=== PATIENT | female | born 1995 | race Caucasian/White ===

== ENCOUNTER → 2018-08-11 17:08 | Outpatient (CLI) | payer OTHER, SELFPAY ==
[2018-08-11 17:52] LABS: Add Manual Diff / Slide Review NO; Basophils Absolute Auto 100 /uL (0-100); Basophils Percent Auto 0.5 % (0-2); Eosinophils Absolute Auto 100 /uL (0-450); Eosinophils Percent Auto 0.7 % (2-4); Hemoglobin 12.7 g/dL (12.0-16.0); Lymphocytes Absolute Auto 2500 /uL (1100-4500); Lymphocytes Percent Auto 21.9 % (25-40); Mean Corpuscular HGB Conc 34.4 % (30-36); Mean Corpuscular Hemoglobin 30.1 PG (26-34); Mean Corpuscular Volume 87.6 fL (80-100); Monocytes Absolute Auto 600 /uL (0-900); Monocytes Percent Auto 5.5 % (3-14); Neutrophils Absolute Auto 8200 /uL (1500-7000); Neutrophils Percent Auto 71.4 % (50-75); Platelet Count 313 X10^3/uL (150-400); Red Blood Cell Count 4.23 X10^6/uL (4.0-5.2); Red Cell Distribution Width 13.3 % (11.6-14.8); White Blood Cell Count 11.5 X10^3/uL (4.5-11.0)
[2018-08-11 17:54] LABS: Appearance Urine UA CLEAR; Bilirubin Urine UA NEGATIVE (NEGATIVE); Color Urine UA YELLOW; Glucose Urine UA NEGATIVE (Negative); Ketones Urine UA NEGATIVE (NEGATIVE); Leukocyte Esterase Urine UA NEGATIVE (NEGATIVE); Nitrite Urine UA NEGATIVE (Negative); Occult Blood Urine UA NEGATIVE (Negative); Protein Urine UA NEGATIVE (Negative); Specific Gravity Urine UA >=1.030 (1.000-1.035); Urobilinogen Urine UA 0.2 E.U./dL (0.2); pH Urine UA 5.5 (4.5-8.0)
[2018-08-11 18:46] LABS: Free T3, Triiodothyronine Free 3.28 pg/mL (2.77-5.27)
[2018-08-11 18:48] LABS: Free T4, Direct Thyroxine 1.32 ng/dL (0.78-2.19)
[2018-08-11 19:02] LABS: Thyroid Stimulating Hormone 2.07 uIU/mL (0.47-4.68)
[2018-08-11 19:06] LABS: Hepatitis B Surface Antigen NEGATIVE s/c (NEGATIVE)
[2018-08-11 19:19] LABS: HIV 1 and 2 Antibody NEGATIVE (NEGATIVE); Hep C Virus Ab w/Reflex Quant NEGATIVE s/c (NEGATIVE)
[2018-08-13 18:16] LABS: RPR Screen Nonreactive (Nonreactive)
== END ==
PROVIDERS: Family Medicine; Visit Provider Internal Medicine
DX: E03.9 Hypothyroidism, unspecified (principal); Z34.01 Encounter for supervision of normal first pregnancy, first trimester
CPT/HCPCS: 36415; 80055; 81003; 84439; 84443; 84481; 86703; 86787; 86803; 86850; 86900; 86901; 87086

== ENCOUNTER → 2018-08-17 15:54 | Outpatient (CLI) | payer OTHER, SELFPAY ==
--- NOTE | 2018-08-17 15:56 | DI.US.S_ITS ---
PROCEDURE: US OB <= 14 WEEKS FETUS INDICATIONS: DATING / INITIAL ULTRASOUND OUTSIDE/PRIOR DATING DATA: Last menstrual period (LMP): 06/23/18. LMP-based estimated date of delivery (GUILLERMO): 03/30/19. First dating scan (date and location): This study, 08/17/18. Estimated date of delivery (GUILLERMO) from first dating scan: 03/28/19. TECHNIQUE: Real-time scanning was performed of the fetus and maternal pelvic organs, with image documentation. Endovaginal scanning was also performed to better visualize the fetus and maternal ovaries. COMPARISON: None. FINDINGS: Embryo: [place]-rump length of 3.1 cm correlates with a gestational age estimate of 8 weeks 2 days, plus or -5 days. The heart rate is 165 beats per minute. Measurement variability in dating: +/- 4 weeks by LMP, +/- 7 days by mean sac diameter (use before 6 weeks gestation if crown-rump length not able to be measured), +/- 5 days by crown-rump length (up to 8 weeks 6 days gestation), +/- 7 days by crown-rump length (up to 13 weeks 6 days gestation). Maternal organs: Ovaries appear normal considering gestational status except for presence of a 4 x 4 by 6 mm hyperechoic focus within a cystic area of the right ovary,. Limited images through the kidneys demonstrate no hydronephrosis. IMPRESSION: Single living intrauterine gestation, with the delivery date projected be centered on 03/28/19. Followup anatomic survey 21 weeks gestation is recommended. Within the right ovary is a cystic structure containing a small echogenic nodular structure which shows no evidence of cardiac activity (an appearance is present at could conceivably represent heterotopic ectopic ). 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 Recommend followup assessment of this area in 2 weeks unless clinically indicated sooner to determine military exchange wireless manager time or establish stability. This could represent a small dermoid tumor or coincidental finding of a nonviable ectopic . Follow up is definitely recommended to further assess the structure. Dictated by: Juan Esquivel M.D. on 08/18/2018 at 10:13 Approved by: Juan Esquivel M.D. on 08/18/2018 at 10:19
== END ==
PROVIDERS: Visit Provider Family Medicine
DX: Z34.01 Encounter for supervision of normal first pregnancy, first trimester (principal); Z3A.08 8 weeks gestation of pregnancy
CPT/HCPCS: 76801; 76817

== ENCOUNTER → 2018-08-31 15:29 | Outpatient (CLI) | payer OTHER, SELFPAY ==
--- NOTE | 2018-08-31 | DI.US.S_ITS ---
PROCEDURE: US OB <= 14 WEEKS FETUS INDICATIONS: MASS OF RIGHT OVARY OUTSIDE/PRIOR DATING DATA: Last menstrual period (LMP): 06/23/18. LMP-based estimated date of delivery (GUILLERMO): 03/30/19. First dating scan (date and location): 08/17/18. Estimated date of delivery (GUILLERMO) from first dating scan: 03/28/19. TECHNIQUE: Real-time scanning was performed of the fetus and maternal pelvic organs, with image documentation. Endovaginal scanning was also performed to better visualize the fetus and maternal ovaries. COMPARISON: , , OB <= 14 WEEKS FETUS, 08/17/2018, 16:10. FINDINGS: Embryo: [place]-rump length of 3.1 cm correlates with a gestational age of 10 weeks 0 days, and there is a heart rate of 160 beats per minute. Measurement variability in dating: +/- 4 weeks by LMP, +/- 7 days by mean sac diameter (use before 6 weeks gestation if crown-rump length not able to be measured), +/- 5 days by crown-rump length (up to 8 weeks 6 days gestation), +/- 7 days by crown-rump length (up to 13 weeks 6 days gestation). Maternal organs: The left ovary is considering gestational status. Limited images through the kidneys demonstrate no hydronephrosis. The right ovary contains a cyst with an echogenic nodular structure containing internal blood flow persisting on the right with the overall structure measuring 1.2 x 0.8 x 1.2 cm. A nodular component shows internal cystic change, and measures 1.2 x 0.8 x 1.2 cm IMPRESSION: Single living intrauterine gestation, normal cardiac activity observed in that area. Again noted at the right ovary is a cystic structure with an internal solid nodular component, with a nodular component showing a small internal cystic change and no evidence of cardiac activity. This structure remains indeterminate in etiology and followup pelvic ultrasound with attention to that structure in 2 weeks is recommended. It is possible that this relates to a synchronous ectopic that is involuting. Dictated by: Juan Esquivel M.D. on 08/31/2018 at 17:04 Approved by: Juan Esquivel M.D. on 08/31/2018 at 17:09
== END ==
PROVIDERS: PCP Family Medicine; Visit Provider Family Medicine
DX: O34.81 Maternal care for other abnormalities of pelvic organs, first trimester (principal); N83.201 Unspecified ovarian cyst, right side; Z3A.10 10 weeks gestation of pregnancy
CPT/HCPCS: 76801; 76817

== ENCOUNTER → 2018-09-10 16:46 | Outpatient (CLI) | payer OTHER, SELFPAY ==
[2018-09-10 18:37] LABS: TSH w/ Reflex to FT4 1.64 uIU/mL (0.47-4.68)
== END ==
PROVIDERS: PCP Family Medicine; Visit Provider Family Medicine
DX: E03.9 Hypothyroidism, unspecified (principal); O99.280 Endocrine, nutritional and metabolic diseases complicating pregnancy, unspecified trimester
CPT/HCPCS: 36415; 84443

== ENCOUNTER → 2018-10-12 15:07 | Outpatient (CLI) | payer OTHER, SELFPAY ==
--- NOTE | 2018-10-12 15:09 | DI.US.S_ITS ---
PROCEDURE: US OB >= 14 WEEKS FETUS INDICATIONS: OUTSIDE/PRIOR DATING DATA: Last menstrual period (LMP): 06/23/18. LMP-based estimated date of delivery (GUILLERMO): 03/30/19. First dating scan (date and location): 08/17/18. Estimated date of delivery (GUILLERMO) from first dating scan: 03/28/19. TECHNIQUE: Real-time scanning was performed of the fetus, with image documentation and biometric measurements. COMPARISON: [facility], OB <= 14 WEEKS FETUS, 08/31/2018, 15:40. [facility], OB <= 14 WEEKS FETUS, 08/17/2018, 16:10. FINDINGS: General: A single living intrauterine gestation is present. Presentation: Transverse maternal right. Placenta: Placental position is posterior, without previa. Amniotic fluid index: Grossly within normal limits heart rate: 147 beats per minute. Maternal cervical canal: 4.0 cm long. Normal lower limit is 2.5 cm. biometrics: Estimated gestational age from initial scan: 16 weeks one day Questionable corpus luteal cyst is noted in the left kidney measuring 16 mm. Previously identified echogenic structure within the right ovary has decreased in size currently measuring 8 x 6 x 7 mm compared to 12 x 8 x 12 mm on prior exam. IMPRESSION: 1. Single intrauterine with ultrasound gestational age of 16 weeks one day. 2. Interval decrease in size of previous right ovarian echogenic focus compared to prior exam. Dictated by: Janel Sneed M.D. on 10/13/2018 at 10:53 Approved by: Janel Sneed M.D. on 10/13/2018 at 11:53
== END ==
PROVIDERS: PCP Family Medicine; Visit Provider Family Medicine
DX: O99.282 Endocrine, nutritional and metabolic diseases complicating pregnancy, second trimester (principal); E03.9 Hypothyroidism, unspecified; Z3A.16 16 weeks gestation of pregnancy
CPT/HCPCS: 76811

== ENCOUNTER → 2018-11-10 13:13 | Outpatient (CLI) | payer OTHER, SELFPAY ==
[2018-11-10 15:10] LABS: TSH w/ Reflex to FT4 1.78 uIU/mL (0.47-4.68)
[2018-11-17 11:58] LABS: AFP, Serum 58.3 ng/mL; Brief History Not Given; Calc Gestational Age 20; Est Date Determined by Ultrasound; Maternal Weight 165 lbs; Mother Ethnic Origin White; Number of Fetuses 1; Prev Pregnancies Down Syndrome No
== END ==
PROVIDERS: PCP Family Medicine; Visit Provider Family Medicine
DX: E03.9 Hypothyroidism, unspecified (principal); O99.280 Endocrine, nutritional and metabolic diseases complicating pregnancy, unspecified trimester; Z3A.17 17 weeks gestation of pregnancy
CPT/HCPCS: 36415; 82105; 84443

== ENCOUNTER → 2018-11-12 10:05 | Outpatient (CLI) | payer OTHER, SELFPAY ==
[2018-11-12 10:39] LABS: Free T4, Direct Thyroxine 1.09 ng/dL (0.78-2.19)
== END ==
PROVIDERS: PCP Family Medicine; Visit Provider Family Medicine
DX: E03.9 Hypothyroidism, unspecified (principal); O99.280 Endocrine, nutritional and metabolic diseases complicating pregnancy, unspecified trimester
CPT/HCPCS: 84439

== ENCOUNTER → 2018-12-21 13:03 | Outpatient (CLI) | payer OTHER, SELFPAY ==
[2018-12-21 15:02] LABS: Add Manual Diff / Slide Review NO; Basophils Absolute Auto 0 /uL (0-100); Basophils Percent Auto 0.3 % (0-2); Eosinophils Absolute Auto 100 /uL (0-450); Eosinophils Percent Auto 0.7 % (2-4); Hematocrit 33.9 % (36-46); Hemoglobin 11.7 g/dL (12.0-16.0); Lymphocytes Absolute Auto 2200 /uL (1100-4500); Lymphocytes Percent Auto 17.8 % (25-40); Mean Corpuscular HGB Conc 34.4 % (30-36); Mean Corpuscular Hemoglobin 30.4 PG (26-34); Mean Corpuscular Volume 88.3 fL (80-100); Monocytes Absolute Auto 600 /uL (0-900); Monocytes Percent Auto 4.9 % (3-14); Neutrophils Absolute Auto 9500 /uL (1500-7000); Neutrophils Percent Auto 76.3 % (50-75); Platelet Count 267 X10^3/uL (150-400); Red Blood Cell Count 3.84 X10^6/uL (4.0-5.2); Red Cell Distribution Width 13.5 % (11.6-14.8); White Blood Cell Count 12.4 X10^3/uL (4.5-11.0)
[2018-12-21 15:23] LABS: Alanine Aminotransferase 14 IU/L (9-52); Albumin 3.6 g/dL (3.5-5.0); Albumin Globulin Ratio 1.3 (1.0-2.8); Alkaline Phosphatase 52 U/L (38-126); Aspartate Aminotransferase 22 IU/L (14-36); BUN Creatinine Ratio 17.5 (6-22); Bilirubin Total 0.3 mg/dL (0.2-1.3); Blood Urea Nitrogen 7 mg/dL (7-17); Carbon Dioxide 27 mmol/L (22-32); Chloride 103 mmol/L (98-107); Estimated Glomerular Filt Rate > 60.0 mL/min (>60); GTT (PREG) 1 Hour PP 50gm Dose 88 mg/dL (76-139); Globulin 2.7 g/dL (1.7-4.1); Glucose 88 mg/dL (70-100); HEMOLYSIS < 15 (0-50); Potassium 3.7 mmol/L (3.4-5.1); Sodium 137 mmol/L (137-145); Total Protein 6.3 g/dL (6.3-8.2)
[2018-12-21 19:25] LABS: Creatinine Urine Random 80.7 mg/dL
[2018-12-21 19:29] LABS: Microalbumi Creatinin Ratio Ur 7.4 ug/mg CR (<30); Microalbumin Urine Random < 0.6 mg/dL (0-1.6)
[2018-12-21 19:40] LABS: Free T4, Direct Thyroxine 1.01 ng/dL (0.78-2.19)
[2018-12-21 19:54] LABS: Thyroid Stimulating Hormone 1.11 uIU/mL (0.47-4.68)
== END ==
PROVIDERS: PCP Family Medicine; Visit Provider Family Medicine
DX: E03.9 Hypothyroidism, unspecified (principal); O99.280 Endocrine, nutritional and metabolic diseases complicating pregnancy, unspecified trimester; Z3A.26 26 weeks gestation of pregnancy
CPT/HCPCS: 36415; 80053; 82043; 82570; 82950; 84439; 84443; 85025

== ENCOUNTER → 2019-01-18 12:27 | Outpatient (CLI) | payer OTHER, SELFPAY ==
[2019-01-18 14:05] LABS: Free T4, Direct Thyroxine 0.85 ng/dL (0.78-2.19)
== END ==
PROVIDERS: PCP Family Medicine; Visit Provider Family Medicine
DX: E03.9 Hypothyroidism, unspecified (principal); O99.280 Endocrine, nutritional and metabolic diseases complicating pregnancy, unspecified trimester
CPT/HCPCS: 36415; 84439; 84443

== ENCOUNTER → 2019-01-19 16:03 | Outpatient (CLI) | payer OTHER, SELFPAY ==
[2019-01-19 17:21] LABS: Hematocrit 32.8 % (36-46); Hemoglobin 11.2 g/dL (12.0-16.0)
== END ==
PROVIDERS: PCP Family Medicine; Visit Provider Family Medicine
DX: D64.9 Anemia, unspecified (principal)
CPT/HCPCS: 36415; 85014; 85018

== ENCOUNTER → 2019-01-21 15:00 | Outpatient (CLI) | payer OTHER, SELFPAY ==
--- NOTE | 2019-01-21 15:01 | DI.US.S_ITS ---
PROCEDURE: US ABDOMEN COMPLETE INDICATIONS: Upper abdominal pain TECHNIQUE: Real-time scanning was performed of the abdominal and retroperitoneal organs, with image documentation. COMPARISON: None. FINDINGS: Liver: Liver is normal in size and homogeneous in echotexture. Gallbladder: No gallstones. No gallbladder wall thickening, pericholecystic fluid or sonographic Muir's sign. Biliary ducts: Intrahepatic bile ducts are non-dilated. Extrahepatic bile duct caliber measures 4.6 mm. Normal is 6-7 mm or less in diameter, or 10 mm or less post-cholecystectomy. Pancreas: Visualized portions of the pancreas are sonographically normal. Spleen: Spleen is normal in size and homogeneous in echotexture. Kidneys: Kidneys are normal in size and echotexture. Right kidney measures 13.8 cm long; left kidney measures 14.0 cm long. There is trace pelviectasis versus extrarenal pelvis in right kidney. No solid masses. Aorta: Visualized aorta is normal in caliber at less than 3 cm. Iliacs: Proximal common iliac arteries are normal in caliber at less than 2.5 cm. IVC: Intrahepatic inferior vena cava is patent. Miscellaneous: No free abdominal fluid. There is a single living IUP with heart rate 128 PM. IMPRESSION: 1. No ultrasound findings to explain right upper quadrant pain. 2. Trace pelviectasis versus extrarenal pelvis in the kidney. 3. A single living IUP with heart rate 128 bpm. Dictated by: Radha Mosley M.D. on 01/21/2019 at 16:24 Approved by: Radha Mosley M.D. on 01/21/2019 at 16:34
== END ==
PROVIDERS: PCP Family Medicine; Visit Provider Registered Nurse
DX: R10.10 Upper abdominal pain, unspecified (principal)
CPT/HCPCS: 76700

== ENCOUNTER → 2019-02-02 12:49 | Outpatient (CLI) | payer OTHER, SELFPAY ==
[2019-02-02 12:53] LABS: Bacteria Urine None Seen; RBC Urine None Seen (0-5/HPF); WBC Urine None Seen (0-5/HPF)
[2019-02-02 13:10] LABS: Appearance Urine UA CLEAR; Bilirubin Urine UA NEGATIVE (NEGATIVE); Color Urine UA YELLOW; Glucose Urine UA NEGATIVE (Negative); Ketones Urine UA NEGATIVE (NEGATIVE); Leukocyte Esterase Urine UA NEGATIVE (NEGATIVE); Nitrite Urine UA NEGATIVE (Negative); Occult Blood Urine UA NEGATIVE (Negative); Protein Urine UA NEGATIVE (Negative); Specific Gravity Urine UA <=1.005 (1.000-1.035); Urobilinogen Urine UA 0.2 E.U./dL (0.2); pH Urine UA 6.5 (4.5-8.0)
[2019-02-02 13:16] LABS: Culture Indicated Urine Cult Not Indicated; Urine Comments Microscopic Normal
== END ==
PROVIDERS: PCP Family Medicine; Visit Provider Family Medicine
DX: R30.0 Dysuria (principal)
CPT/HCPCS: 81001

== ENCOUNTER 2019-02-03 09:49 | Outpatient (CLI) | payer OTHER, SELFPAY | END 2019-02-03 11:14 | disposition home or self-care (01) | LOC: LABOR 09:56 → OB 02-04 12:04 | PROVIDERS: PCP Family Medicine; Visit Provider Obstetrics & Gynecology | DX: O47.03 False labor before 37 completed weeks of gestation, third trimester (principal); Z3A.32 32 weeks gestation of pregnancy | CPT/HCPCS: 59025; G0378; G0379 ==

== ENCOUNTER → 2019-02-15 12:42 | Outpatient (CLI) | payer OTHER, SELFPAY ==
[2019-02-15 14:37] LABS: Free T4, Direct Thyroxine 0.85 ng/dL (0.78-2.19)
[2019-02-15 14:51] LABS: Thyroid Stimulating Hormone 0.95 uIU/mL (0.47-4.68)
== END ==
PROVIDERS: PCP Family Medicine; Visit Provider Family Medicine
DX: O99.280 Endocrine, nutritional and metabolic diseases complicating pregnancy, unspecified trimester (principal); E03.9 Hypothyroidism, unspecified
CPT/HCPCS: 36415; 84439; 84443

== ENCOUNTER → 2019-03-02 10:25 | Outpatient (CLI) | payer OTHER, SELFPAY ==
[2019-03-03 09:24] LABS: Strep Grp B PCR POS for Grp B Strep
== END ==
PROVIDERS: PCP Family Medicine; Visit Provider Family Medicine
DX: Z3A.36 36 weeks gestation of pregnancy (principal)
CPT/HCPCS: 87186; 87653

== ENCOUNTER 2019-04-02 06:46 | Observation (INO) | payer OTHER, SELFPAY ==
--- NOTE | 2019-04-02 07:12 | PM.OBHP.1 ---
OB HPI Date/Time Date of admission: 04/02/19 Date Patient Seen: 04/02/19 Time Patient Seen: 07:30 History of Present Condition Chief complaint: maternity : 3 Para: 0 Estimated Date of Delivery: 03/29/19 Estimated Gestational Age (weeks): 40w4d Narrative: Smiley Powell is a 24 year old female with h/o asymptomatic chiari 1 malformation and well-controlled hypothyroidism. She has had significant thoracic back pain for the last month+ unrelieved with rest, stopping work, massage and physical therapy. Indications Indication for induction OB: maternal discomfort History of Present care: good care, initiated at week # (10), number of visits (14) and pounds weight gain (26) Dating criteria: LMP confirmed by 1st trimester US Ultrasounds: abnormal US findings Obstetrical complications: none Medical complications: other (Hypothyroidism) Preadmission Labs Blood type: B (+) positive -: Antibody screen: negative, GBS status: positive, HBsAG: negative, HIV: negative and RPR/VDLR: negative -: Chlamydia screen: not detected -: Rubella: immune and Varicella: immune HCT: 37 HCAB: negative PAP: Normal Quad screen: Normal Cell-free DNA: Normal male 1 hr GTT: 88 Prior (ies) History: 2014 spontaneous of blighted ovum 9 weeks 06/18/17 spontaneous at 8 weeks requiring D&C, cervical laceration repaired Evaluation Evaluation Baseline heart rate: 120 Variability: Moderate (11-25) monitor accelerations: Present monitor decelerations: Absent Cervical dilation (cm): 2 Cervical effacement (%): 50 station: -1 PENDING SALE TO [facility] Medical History Abnormal Pap smear of cervix (Acute) Anxiety and depression (Chronic) Chiari malformation (Acute) Sanchez's thyroiditis (Chronic) Migraines (Chronic) Seizures (Resolved) Spontaneous (Resolved) Surgical History Dermoid cyst of right ovary (Resolved) H/O wisdom tooth extraction (Resolved) History of D&C (Resolved) Family History Mother Hypothyroidism Social History marital status: number of children: 0 household members: spouse lives independently: Yes education level: college occupational status: employed Smoking Status: Never smoker alcohol intake: current substance use type: does not use Family History Mother Hypothyroidism Social History marital status: number of children: 0 household members: spouse lives independently: Yes education level: college occupational status: employed Smoking Status: Never smoker alcohol intake: current substance use type: does not use Meds Home Medications and Allergies Home Medications Medication Instructions Recorded Confirmed Type prenat.vits,chas,iel-bgjo-tldff 1 tab PO DAILY 08/27/18 03/15/19 History famotidine 20 mg tablet 20 mg PO DAILY PRN 01/21/19 03/15/19 History Double Electric Breast Pump and #1 each 01/28/19 03/15/19 Rx supplies levothyroxine 75 mcg tablet 75 mcg PO DAILY #30 tab 02/08/19 03/15/19 Rx doxylamine succinate 25 mg tablet 12.5 mg PO BEDTIME PRN tab 03/15/19 03/15/19 History Allergies Allergy/AdvReac Type Severity Reaction Status Date / Time Penicillins AdvReac Hives Verified 03/15/19 14:29 Review of Systems Constitutional Constitutional: Denies fatigue, Denies fever(s) and Denies headache(s) ENT Ears, Nose, Mouth, and Throat: No headache(s) Respiratory Respiratory: Denies cough Gastrointestinal Gastrointestinal: Denies abdominal pain Musculoskeletal Musculoskeletal: Reports back pain (mid thoracic) Neurologic Neurologic: Denies headache(s) Endocrine Endocrine: Denies fatigue Exam Const General: healthy appearing and comfortable HENMT Head: normal to inspection Ears: hearing grossly normal bilaterally Nose: external nose normal Face and sinus: normal facial exam Mouth: oral mucosae normal Eyes General: appearance normal, both eyes and all related structures Neck Neck: normal visual inspection Resp Effort & Inspection: normal respiratory effort Auscultation: clear to auscultation bilaterally Cardio Rate: regular rate Rhythm: regular rhythm Heart Sounds: no murmurs GI Other: Gravid External Female Exam: external appearance normal Manual OB Exam: dilated 2, effaced 50% and station -1 Presentation: vertex Estimated Weight (lbs): 7 Back/Spine/Pelvis Back: normal to inspection Skin General: no rashes or lesions noted Extrem General: normal to inspection and no pedal edema Objective Labs Result Diagrams: 04/02/19 08:05 Assessment and Plan Assessment and Plan Assessment and Plan narrative: Patient is a 24 year old at 40 weeks and 4 days gestation here for induction for maternal discomfort. Chan score of 8. History is significant for asymptomatic chiari 1 malformation and well-controlled hypothyroidism. She was seen by MFM during the due to the chiari 1 malformation. No contraindications to pushing with vaginal delivery. Case was discussed with anesthesia ahead of time regarding epidural anesthesia and patient was determined ok to deliver at [facility]. Due to her chiari 1 malformation, there is potential increased risk with epidural or spinal anesthesia though no contraindication to either. Plan - Pitocin per protocol - Anesthesia aware of patient - GBS prophylaxis, will give cefazolin due to penicillin allergy
[2019-04-02 08:29] LABS: Add Manual Diff / Slide Review NO; Basophils Absolute Auto 100 /uL (0-100); Basophils Percent Auto 0.5 % (0-2); Eosinophils Absolute Auto 100 /uL (0-450); Eosinophils Percent Auto 0.9 % (2-4); Hematocrit 34.1 % (36-46); Hemoglobin 11.2 g/dL (12.0-16.0); Lymphocytes Absolute Auto 2200 /uL (1100-4500); Lymphocytes Percent Auto 20.1 % (25-40); Mean Corpuscular HGB Conc 32.8 % (30-36); Mean Corpuscular Hemoglobin 26.1 PG (26-34); Mean Corpuscular Volume 79.6 fL (80-100); Monocytes Absolute Auto 700 /uL (0-900); Monocytes Percent Auto 6.7 % (3-14); Neutrophils Absolute Auto 7700 /uL (1500-7000); Neutrophils Percent Auto 71.8 % (50-75); Platelet Count 248 X10^3/uL (150-400); Red Blood Cell Count 4.29 X10^6/uL (4.0-5.2); Red Cell Distribution Width 16.3 % (11.6-14.8); White Blood Cell Count 10.7 X10^3/uL (4.5-11.0)
[2019-04-02] MEDS: CEFAZOLIN 2 GM/100 ML FROZ.PIGGY IV (08:36)
[2019-04-02] MEDS: LACTATED RINGERS 1,000 ML 100 ML IV ×2 (08:36→15:42)
[2019-04-02] MEDS: OXYTOCIN PREMIX 30 UNIT/500 ML PLAST..BAG IV (08:52)
[2019-04-02 08:55] VITALS: BP 123/68
[2019-04-02] MEDS: CEFAZOLIN 1 GM/50 ML FROZ.PIGGY IV (16:15)
--- NOTE | 2019-04-02 17:09 | P.PNOB_ITS ---
Date/Time Date Patient Seen: 04/02/19 Time Patient Seen: 17:00 Pain Control Pain control: tolerating well Pelvic Exam Dilation (cm): 3 Effacement (%): 75 station: -1 Contractions Monitor mode: External Pitocin rate (mU/min): 18 Contraction frequency (min): 3 Contraction pattern: Regular Contraction intensity: Moderate Status status: Category l Heart Rate Baseline: 120 Monitor Accelerations: Present Monitor Decelerations: Absent Monitor Variability: Moderate Assessment and Plan Comments: Patient with some cervical mash filter cloth changer the day but not yet in active labor. Pitocin is at 18. Due to staffing issues, will turn off pitocin, monitor patient over the next hour and discharge her home unless she transitions into active labor on her own (unlikely). Will have her return for repeat induction on 04/06/19 unless she returns in spontaneous labor.
== END 2019-04-02 18:30 | disposition home or self-care (01) ==
PROVIDERS: Admitting Provider Family Medicine; PCP Family Medicine; Visit Provider Family Medicine
DX: O48.0 Post-term pregnancy (principal); Z3A.40 40 weeks gestation of pregnancy
CPT/HCPCS: 59050; 85025; 86850; 86900; 86901; 96360; G0378; G0379; J0690; J2590

== ENCOUNTER 2019-04-06 06:44 | Inpatient (IN) | payer OTHER, SELFPAY ==
[2019-04-06 07:41] LABS: Add Manual Diff / Slide Review NO; Basophils Absolute Auto 0 /uL (0-100); Basophils Percent Auto 0.2 % (0-2); Eosinophils Absolute Auto 100 /uL (0-450); Eosinophils Percent Auto 0.7 % (2-4); Hematocrit 34.4 % (36-46); Hemoglobin 11.3 g/dL (12.0-16.0); Lymphocytes Absolute Auto 2100 /uL (1100-4500); Lymphocytes Percent Auto 18.4 % (25-40); Mean Corpuscular HGB Conc 32.9 % (30-36); Mean Corpuscular Hemoglobin 26.1 PG (26-34); Mean Corpuscular Volume 79.2 fL (80-100); Monocytes Absolute Auto 700 /uL (0-900); Monocytes Percent Auto 6.2 % (3-14); Neutrophils Absolute Auto 8600 /uL (1500-7000); Neutrophils Percent Auto 74.5 % (50-75); Platelet Count 245 X10^3/uL (150-400); Red Blood Cell Count 4.35 X10^6/uL (4.0-5.2); Red Cell Distribution Width 15.9 % (11.6-14.8); White Blood Cell Count 11.5 X10^3/uL (4.5-11.0)
[2019-04-06] MEDS: LACTATED RINGERS 1,000 ML 125 ML IV (07:45)
[2019-04-06] MEDS: OXYTOCIN PREMIX 30 UNIT/500 ML PLAST..BAG IV (07:46)
[2019-04-06] MEDS: CEFAZOLIN 2 GM/100 ML FROZ.PIGGY IV (07:49)
[2019-04-06 08:13] VITALS: BP 128/76
--- NOTE | 2019-04-06 08:39 | PM.OBPNLAB ---
Date/Time Date Patient Seen: 04/06/19 Time Patient Seen: 07:30 Pain Control Pain control: tolerating well Comments: Patient presents for repeat attempt at induction. She was here for elective induction on 04/02 19 however discharged home after little change on Pitocin and staffing issues. She returns this morning and reports she has had increased mucus but otherwise no leaking, bleeding or painful contractions. Pelvic Exam Dilation (cm): 2 Effacement (%): 75 station: -1 Amniotic membrane status: Intact Contractions Contractions on admission: irregular Status status: Category l Heart Rate Baseline: 120 Monitor Accelerations: Present Monitor Decelerations: Absent Monitor Variability: Moderate Assessment and Plan Comments: Please refer to H& P from 04/02/19. Patient is a 24-year-old at 41 weeks gestation here for post-dates induction. Elective induction was attempted on 04/02/19 however patient discharged home after little progress and staffing issues going into the night. Will begin Pitocin per protocol Cefazolin for GBS prophylaxis given Pitocin allergy Epidural upon request
[2019-04-06] MEDS: guaiFENesin Solution 100 MG/5 ML UDC 200 MG PO ×3 (09:13→22:02)
--- NOTE | 2019-04-06 12:52 | PM.OBPNLAB ---
Date/Time Date Patient Seen: 04/06/19 Time Patient Seen: 11:45 Pain Control Pain control: tolerating well Pelvic Exam Dilation (cm): 3 Effacement (%): 90 station: -1 Amniotic membrane status: Ruptured (AROM copious clear fluid) Contractions Pitocin rate (mU/min): 12 Contraction frequency (min): 2 Contraction pattern: Regular Contraction intensity: Moderate Status status: Category l Heart Rate Baseline: 120 Monitor Accelerations: Present Monitor Decelerations: Absent Monitor Variability: Moderate Assessment and Plan Assessment: induction ongoing Comments: AROM with clear fluid. Continue pitocin per protocol.
--- NOTE | 2019-04-06 14:26 | PM.AN.REGBLK ---
Regional Block Pre-procedure Attending OB provider: Elaine Brown ASA Class: II Labs: Hct 34.4 % (36-46) L 04/06/19 07:00 Plt Count 245 X10^3/uL (150-400) 04/06/19 07:00 Medications: Current Medications Generic Name Dose Route Start Last Admin Trade Name Freq PRN Reason Stop Dose Admin Calcium Carbonate 1,000 mg 04/06/19 07:06 Tums PO Q2HR PRN Dyspepsia Fentanyl 50 mcg 04/06/19 07:06 Sublimaze IV Q1H PRN Pain, Moderate (4-6) Guaifenesin 200 mg 04/06/19 08:51 04/06/19 13:48 Robitussin Liquid PO 200 mg Q4HR PRN Administration Cough Cefazolin Sodium/Dextrose 1 gm in 50 mls @ 200 mls/hr 04/06/19 15:30 Ancef IV Q8H LEO Lactated Ringer's 1,000 mls @ 125 mls/hr 04/06/19 07:15 04/06/19 07:45 Lactated Ringers IV 125 mls/hr CONT LEO Administration Oxytocin/Lactated Ringer's 30 unit in 500 mls @ 3 mls/hr 04/06/19 07:15 04/06/19 07:46 Oxytocin Premix IV 3 milliunit/min TITRATE LEO 3 mls/hr Administration Protocol 3 MILLIUNIT/MIN FENT 2MCG/ML BUPIV 0.125% EPI 200 mcg in 100 mls @ 5 mls/hr 04/06/19 11:00 Fentanyl/Bupiv/Ns 2mcg/Ml - 0.125% EPIDURAL CONT LEO Ondansetron HCl 4 mg 04/06/19 07:06 Zofran IV Q4HR PRN Nausea And Vomiting Allergies: Allergies Allergy/AdvReac Type Severity Reaction Status Date / Time Penicillins AdvReac Hives Verified 03/15/19 14:29
[2019-04-06] MEDS: CEFAZOLIN 1 GM/50 ML FROZ.PIGGY IV (17:20)
--- NOTE | 2019-04-06 18:41 | PM.OBPRVD ---
Labor & Delivery Delivery date: 04/06/19 Delivery augmentation: rupture of membranes Delivery monitor: external FHT Route of delivery: L&D Laceration Description: Perineal - 2nd Degree (short left side) Delivery repair: vicryl Estimated blood loss (mL): 100 Anesthesia type: Epidural Narrative: Patient is a 24-year-old G 2 P 0 at 41 weeks and 1 day who gave on 04/06/19 at 6:15 p.m. GUILLERMO: 03/29/19 Hospital problems: 41 weeks of Epidural analgesia GBS positive STAGE I: Labor Patient was admitted for induction of labor for post dates. She received Pitocin per protocol. Artificial rupture of membranes occurred at 11:54 a.m. with copious amounts of clear fluid. Active labor began shortly thereafter. She received an epidural with good pain control. She was complete at 4:48 p.m.. heart tones were category 1 throughout stage I. STAGE II: Delivery The second stage of labor lasted 1 hour and 31 minutes. Spontaneous vaginal delivery occurred at 6:15 p.m.. Infant was vertex and JUSTINO. Infant was immediately placed on mother's abdomen and vigorous at delivery. Apgars were 9 and 9. No resuscitation required. heart tones were category 2 throughout stage II due to decelerations with pushing. STAGE III: Placenta/Cord Placenta delivered spontaneously at 6:19 p.m. with a three-vessel cord and appeared intact. There were some calcifications of the placenta. A small second-degree vaginal and perineal laceration was required with 3 0 Vicryl in the usual fashion. Hemostasis achieved. Complications: None EBL: 100 mL. Needle and sponge counts were correct. The vagina was inspected and no items were left in situ. Patient was doing well with Ricardo, her and at bedside. [place] 1: Infant gender: Male Presentation: vertex position: Right Occiput Anterior cord vessel description: 3 Vessels score (1 min): 9 score (5 min): 9
[2019-04-06] MEDS: IBUPROFEN 600 MG TABLET PO (21:07)
[2019-04-07] MEDS: guaiFENesin Solution 100 MG/5 ML UDC 200 MG PO ×2 (03:28→09:42)
[2019-04-07] MEDS: IBUPROFEN 600 MG TABLET PO ×4 (03:40→22:23)
[2019-04-07] MEDS: OXYCODONE IR 5 MG TABLET PO ×5 (03:40→22:23)
[2019-04-07] MEDS: LEVOTHYROXINE 75 MCG TABLET PO (06:32)
[2019-04-07] MEDS: PRENATAL VIT,CALC/IRON/FOLIC 1 TABLET 1 TAB PO (07:52)
[2019-04-07] MEDS: DOCUSATE 250 MG CAPSULE PO (07:52)
--- NOTE | 2019-04-07 10:21 | P.PNOB_ITS ---
Subjective - OB Subjective Date Patient Seen: 04/07/19 Time Patient Seen: 09:45 Interval history: Patient continues to have a cough which has improved with guaifenesin. is going very well. She is eating and passing flatus. Last night a Gong catheter was placed due to significant labial swelling and patient's inability to void. Catheter has had good output and should be removed this morning. Bleeding is moderate. Pain well controlled with ibuprofen and oxycodone. Her pain is primarily in her perineal area. Exam Vital Signs (past 8 hours): Temperature 98.2? blood pressure 119/72 heart rate 82 respirations 16 Narrative Exam Narrative: General: Awake and alert, no acute distress. HEENT: NCAT, EOMI, moist oral mucosa CV: Regular rate and rhythm, no murmurs, rubs or gallops Lungs: CTAB, no wheezes, rales, or rhonchi Abdomen: Soft, nontender; bowel tones active; uterus firm 1 cm below umbilicus Genitourinary: Moderate edema of labia bilaterally. Extremities: Warm, no edema, 2+ pedal pulses bilaterally Objective Labs Result Diagrams: 04/06/19 07:00 Assessment & Plan Assessment and Plan (1) Spontaneous vaginal delivery: Status: Acute Current Visit: Yes (2) 41 weeks gestation of : Status: Acute Current Visit: Yes Plan day: 1 plan OB: routine care Comments: 24-year-old day 1 after spontaneous vaginal delivery. She did crown for a significant amount of time and as a result has moderate labial swelling. She is quite tender today. Will take the Gong out today and encouraged her to get up out of bed. She is doing very well with breast- feeding. Anticipate discharge home tomorrow. Time Spent With Patient Time: Total time spent is greater than 50% in coordination of care (as documented) at patient's floor/unit and/or counseling patient: Time with patient: less than 15 minutes
[2019-04-07 17:02] VITALS: TEMP 36.4
[2019-04-07] MEDS: guaiFENesin Solution 100 MG/5 ML UDC PO (17:02)
[2019-04-07] MEDS: GUAIFENESIN/DM 200/20 MG/10 ML UDC PO (22:33)
[2019-04-08] MEDS: OXYCODONE IR 5 MG TABLET PO ×2 (06:03→12:39)
[2019-04-08] MEDS: IBUPROFEN 600 MG TABLET PO ×2 (06:04→12:40)
[2019-04-08] MEDS: guaiFENesin Solution 100 MG/5 ML UDC PO ×2 (06:04→12:41)
[2019-04-08] MEDS: LEVOTHYROXINE 75 MCG TABLET PO (06:04)
--- NOTE | 2019-04-08 08:33 | P.DS_ITS ---
Discharge Providers Provider Date of admission: 04/06/19 06:44 Discharge Date: 04/08/19 Primary care physician: Elaine Brown DO Consults: 04/06/19 19:25 Consult to Combination Machine Tool Operator Routine Comment: Discharge provider: Elaine Brown DO Summary Hospital Course Date Patient Seen: 04/08/19 Time Patient Seen: 08:10 Procedures: Spontaneous vaginal delivery Epidural analgesia Hospital Course: Patient is a 24-year-old after uncomplicated spontaneous vaginal delivery on 04/06/19 at 41 weeks and 1 day gestation. She was brought in for post-dates induction and progressed well with Pitocin and artificial rupture of membranes. She was GBS positive received adequate antibiotic prophylaxis prior to delivery. Infant was vigorous at delivery. A small second-degree vaginal laceration was repaired in the usual fashion. In the hours patient had quite a bit of labial swelling so Gong catheter was placed. This was removed the following morning without difficulty. patient was ambulating, eating, voiding, passing flatus without issue. Bleeding was reportedly light. She did have a head cold and cough symptomatically treated with guaifenesin. No fevers. Breast-feeding was going well and she was la tching the infant independently. Advised patient to call for fevers, severe pain or bleeding through more than a pad an hour. She is following up in clinic tomorrow with her . She will need a 6 week visit. Peripartum Data Infant Delivery Method: Natural Vaginal Laceration description: Vaginal - 2nd Degree complications: none [place] 1: Gender: Male Disposition of : home Discharge Diagnosis (1) Spontaneous vaginal delivery: Status: Acute (2) 41 weeks gestation of : Status: Acute Time Spent with Patient Time attestation: Total time spent providing and/or coordinating discharge services: Objective Labs Result Diagrams: 04/06/19 07:00 Exam Vital Signs (past 8 hours): Temperature 98.6? blood pressure 125/70 heart rate 80 respirations 16 Narrative Exam Narrative: General: Awake and alert, no acute distress. HEENT: NCAT, EOMI, moist oral mucosa, nasal congestion CV: Regular rate and rhythm, no murmurs, rubs or gallops Lungs: CTAB, no wheezes, rales, or rhonchi Abdomen: Soft, nontender; bowel tones active; uterus firm 2 cm below umbilicus Extremities: Warm, no edema, 2+ pedal pulses bilaterally Discharge Plan Discharge Plan Patient Disposition: Home Discharge comment: Call for fevers, severe pain or bleeding through more than a pad an hour. Discharge Med Rec/Prescriptions Prescriptions: New ibuprofen 600 mg Tablet 600 mg PO Q6HR PRN (Reason: Pain, Mild (1-3)) Qty: 30 RF: 0 docusate sodium 250 mg Capsule 250 mg PO DAILY Qty: 30 RF: 0 oxycodone 5 mg Tablet 5 mg PO Q4HR PRN (Reason: Pain, Moderate (4-6)) Qty: 10 RF: 0 Continued (DME) Double Electric Breast Pump and supplies Qty: 1 RF: 0 levothyroxine 75 mcg tablet 75 mcg PO DAILY Qty: 30 RF: 3 prenat.vits,chas,gsr-dycr-lszhz tablet 1 tab PO DAILY RF: 0 famotidine [Pepcid] 20 mg tablet 20 mg PO DAILY PRN (Reason: heartburn) RF: 0 Discontinued Unisom (doxylamine) 25 mg tablet 12.5 mg PO BEDTIME PRNRF: 0 Follow up/Referrals: Elaine Brown DO [Primary Care Provider] - 05/18/19 11:30 am (Call [phone] with any questions or concerns) Visit Report/Discharge Packet Stand Alone Forms: Discharge: Care Visit Report Forms: Patient Portal/API, Stroke Signs & Symptoms Discharge Data Primary Care Provider: Elaine Brown Discharges patient from system. Discharge Date/Time: 04/08/19 14:25
[2019-04-08 10:30] VITALS: BP 128/76; PULSE 80; RESP 18; TEMP 36.4
[2019-04-08] MEDS: DOCUSATE 250 MG CAPSULE PO (12:38)
[2019-04-08] MEDS: PRENATAL VIT,CALC/IRON/FOLIC 1 TABLET 1 TAB PO (12:38)
== END 2019-04-08 14:25 | disposition home or self-care (01) | DRG 807 ==
PROVIDERS: Admitting Provider Family Medicine; PCP Family Medicine; Visit Provider Family Medicine
DX: O48.0 Post-term pregnancy (principal); Z37.0 Single live birth; Z3A.41 41 weeks gestation of pregnancy; O99.824 Streptococcus B carrier state complicating childbirth; O70.1 Second degree perineal laceration during delivery
CPT/HCPCS: 01967; 59400; 85025; 86850; 86900; 86901; G0379; J0690; J2590; J3010

== ENCOUNTER → 2019-07-12 15:43 | Outpatient (CLI) | payer OTHER, SELFPAY ==
[2019-07-12 18:38] LABS: TSH w/ Reflex to FT4 < 0.02 uIU/mL (0.47-4.68)
[2019-07-12 19:08] LABS: Free T4, Direct Thyroxine 2.21 ng/dL (0.78-2.19)
== END ==
PROVIDERS: PCP Family Medicine; Visit Provider Family Medicine
DX: O99.280 Endocrine, nutritional and metabolic diseases complicating pregnancy, unspecified trimester (principal); E03.9 Hypothyroidism, unspecified
CPT/HCPCS: 36415; 84439; 84443

== ENCOUNTER → 2019-09-20 09:32 | Outpatient (CLI) | payer OTHER, SELFPAY ==
[2019-09-20 09:57] LABS: Add Manual Diff / Slide Review NO; Basophils Absolute Auto 100 /uL (0-100); Basophils Percent Auto 1.1 % (0-2); Eosinophils Absolute Auto 100 /uL (0-450); Eosinophils Percent Auto 1.2 % (2-4); Hematocrit 43.8 % (36-46); Lymphocytes Absolute Auto 2600 /uL (1100-4500); Lymphocytes Percent Auto 35.5 % (25-40); Mean Corpuscular HGB Conc 34.3 % (30-36); Mean Corpuscular Hemoglobin 30.2 PG (26-34); Monocytes Absolute Auto 400 /uL (0-900); Monocytes Percent Auto 5.8 % (3-14); Neutrophils Absolute Auto 4100 /uL (1500-7000); Neutrophils Percent Auto 56.4 % (50-75); Platelet Count 374 X10^3/uL (150-400); Red Blood Cell Count 4.98 X10^6/uL (4.0-5.2); Red Cell Distribution Width 14.2 % (11.6-14.8); White Blood Cell Count 7.2 X10^3/uL (4.5-11.0)
[2019-09-20 11:13] LABS: Alanine Aminotransferase 18 IU/L (<35); Albumin 5.3 g/dL (3.5-5.0); Albumin Globulin Ratio 1.5 (1.0-2.8); Alkaline Phosphatase 70 U/L (38-126); Aspartate Aminotransferase 33 IU/L (14-36); BUN Creatinine Ratio 22.4 (6-22); Bilirubin Total 0.8 mg/dL (0.2-1.3); Blood Urea Nitrogen 13 mg/dL (7-17); Calcium 10.3 mg/dL (8.4-10.2); Carbon Dioxide 28 mmol/L (22-32); Chloride 103 mmol/L (98-107); Estimated Glomerular Filt Rate > 60.0 mL/min (>60); Globulin 3.5 g/dL (1.7-4.1); Glucose 91 mg/dL (70-100); HEMOLYSIS < 15 (0-50); Potassium 4.4 mmol/L (3.4-5.1); Sodium 142 mmol/L (137-145); Total Protein 8.8 g/dL (6.3-8.2)
[2019-09-20 11:30] LABS: Free T3, Triiodothyronine Free 3.01 pg/mL (2.77-5.27); Free T4, Direct Thyroxine 0.96 ng/dL (0.78-2.19)
== END ==
PROVIDERS: PCP Family Medicine; Referring Provider Family Medicine; Visit Provider Family Medicine
DX: O99.280 Endocrine, nutritional and metabolic diseases complicating pregnancy, unspecified trimester (principal); R20.0 Anesthesia of skin; R29.90 Unspecified symptoms and signs involving the nervous system; E03.9 Hypothyroidism, unspecified
CPT/HCPCS: 36415; 80053; 84439; 84443; 84481; 85025

== ENCOUNTER → 2019-09-22 08:44 | Outpatient (CLI) | payer OTHER, SELFPAY ==
--- NOTE | 2019-09-22 08:45 | DI.MRI.S_ITS ---
PROCEDURE: MR HEAD/BRAIN WO/W CON INDICATIONS: new onset saddle numbness TECHNIQUE: Noncontrast axial T1 spin echo, axial T2 fast spin echo, sagittal and axial FLAIR, coronal T2 fast spin echo, axial gradient echo, axial diffusion and ADC through the brain. After the administration of contrast, axial and coronal 3D VIBE or T1 spin echo with fat saturation through the brain. COMPARISON: None. FINDINGS: Image quality: Excellent. CSF Spaces: Basal cisterns are patent. No extra-axial fluid collections. Ventricles are normal in size and shape. Brain: No midline shift. No intracranial bleeds or masses. No abnormal intracranial enhancement. The brainstem appears normal. Diffusion-weighted images demonstrate no acute ischemic insults. No chronic ischemic insults. Normal intravascular flow voids are present. Skull and face: Calvarial marrow is normal in signal. Orbits appear normal. Sinuses: Sinuses and mastoids appear clear. IMPRESSION: Negative brain MRI. No explanation for numbness and paresthesia. No acute process. No recent infarct. Dictated by: Víctor Don M.D. on 09/22/2019 at 11:25 Approved by: Víctor Don M.D. on 09/22/2019 at 11:26
--- NOTE | 2019-09-22 08:45 | DI.MRI.S_ITS ---
PROCEDURE: MR CERVICAL SPINE WO/W CON INDICATIONS: new onset saddle numbness TECHNIQUE: Noncontrast sagittal T1 spin echo and T2 fast spin echo, sagittal STIR, sagittal PD fast spin echo, foraminal oblique sagittal T2 fast spin echo, axial gradient echo or T2 fast spin echo through the cervical spine. After the administration of contrast, sagittal and axial T1 spin echo with fat saturation through the cervical spine. COMPARISON: None. FINDINGS: Image quality: Excellent. Alignment and curvature: There is loss of normal cervical lordosis. There is mild kyphosis C4-C6. There is mild grade 1 anterolisthesis of C4 on C5. Marrow: Marrow demonstrates normal overall signal. Spinal cord: Visualized spinal cord is normal in size, without white matter lesions. No suspicious intramedullary enhancement. No cerebellar tonsillar herniation. Paraspinous soft tissues: No paravertebral masses or suspicious enhancement. C2-C3: Normal appearance. C3-C4: Normal appearance. C4-C5: Mild disc desiccation. Mild diffuse disc bulge. Mild canal stenosis. No foraminal stenosis. C5-C6: Mild disc desiccation and diffuse disc bulge. Mild canal stenosis. No foraminal stenosis. C6-C7: Mild disc desiccation. Mild facet and uncovertebral hypertrophy. No significant canal stenosis. Mild bilateral foraminal stenosis. C7-T1: Normal appearance. IMPRESSION: 1. No evidence of myelopathy. 2. Mild mid/lower cervical degenerative disc and facet disease, causing mild canal and foraminal stenoses as described above. No neural impingement. Dictated by: Víctor Don M.D. on 09/22/2019 at 11:26 Approved by: Víctor Don M.D. on 09/22/2019 at 11:29
--- NOTE | 2019-09-22 09:23 | DI.MRI.S_ITS ---
PROCEDURE: MR THORACIC SPINE WO/W CON INDICATIONS: new onset saddle numbness TECHNIQUE: Noncontrast sagittal T1 spin echo and T2 fast spin echo, sagittal STIR, axial T1 and T2 fast spin echo through the thoracic spine. After the administration of contrast, axial and sagittal T1 spin echo with fat saturation through the thoracic spine. COMPARISON: None. FINDINGS: Image quality: Excellent. Alignment and curvature: There is normal bony alignment. Marrow: Marrow is of normal overall signal. No acute vertebral body compression fractures. Spinal cord: Visualized spinal cord is of normal signal and size, without abnormal enhancement. Paraspinous soft tissues: No paravertebral masses or abnormal enhancement. Miscellaneous: Central canal and foramina appear widely patent at all scanned levels. IMPRESSION: Negative thoracic spine MRI. No explanation for numbness. Dictated by: Víctor Don M.D. on 09/22/2019 at 11:29 Approved by: Víctor Don M.D. on 09/22/2019 at 11:30
--- NOTE | 2019-09-22 09:23 | DI.MRI.S_ITS ---
PROCEDURE: MR LUMBAR SPINE WO/W CON INDICATIONS: paresthesia, abnormal gait, concern for MS TECHNIQUE: Noncontrast sagittal T1 spin echo and T2 fast spin echo, sagittal STIR, axial T1 and T2 fast spin echo through the lumbar spine. In cases with scoliosis, additional coronal T2 fast spin echo may be performed. After the administration of contrast, sagittal and axial T1 spin echo with fat saturation through the lumbar spine. COMPARISON: None. FINDINGS: Image quality: Excellent. Alignment and curvature: No plain films are available for comparison, for numbering purposes. Thus, for the purposes of this examination, 5 lumbar type vertebral bodies will be presumed, as denoted on the montage panel. This should be confirmed and correlated with plain films, prior to any lumbar spinal intervention. There is normal bony alignment. Marrow: Marrow is of normal overall signal. No acute vertebral body compression fractures. No suspicious marrow enhancement. Spinal cord: Conus medullaris terminates at the mid L2 level. Visualized spinal cord demonstrates normal signal, without suspicious enhancement. Paraspinous soft tissues: No paravertebral masses or abnormal enhancement. L1-L2: Normal appearance. L2-L3: Normal appearance. L3-L4: Normal appearance. L4-L5: Normal appearance. L5-S1: Minimal disc desiccation. Mild diffuse disc bulge. No significant canal, nor neural foraminal stenosis. IMPRESSION: Mild lumbosacral disc degeneration. Otherwise negative lumbar spine MRI. No explanation for numbness. Dictated by: Víctor Don M.D. on 09/22/2019 at 11:30 Approved by: Víctor Don M.D. on 09/22/2019 at 11:32
== END ==
PROVIDERS: PCP Family Medicine; Referring Provider Family Medicine; Visit Provider Family Medicine
DX: R29.898 Other symptoms and signs involving the musculoskeletal system (principal); M50.321 Other cervical disc degeneration at C4-C5 level; M48.02 Spinal stenosis, cervical region; M47.812 Spondylosis without myelopathy or radiculopathy, cervical region; M51.37 Other intervertebral disc degeneration, lumbosacral region; R26.9 Unspecified abnormalities of gait and mobility; R20.2 Paresthesia of skin; R20.0 Anesthesia of skin
CPT/HCPCS: 70553; 72156; 72157; 72158; A9579

== ENCOUNTER → 2020-01-25 12:50 | Outpatient (CLI) | payer OTHER, SELFPAY ==
[2020-01-25 14:00] LABS: Thyroid Stimulating Hormone 3.51 uIU/mL (0.47-4.68)
== END ==
PROVIDERS: PCP Family Medicine; Referring Provider Family Medicine; Visit Provider Family Medicine
DX: E03.9 Hypothyroidism, unspecified (principal)
CPT/HCPCS: 36415; 84439; 84443; 84481

== ENCOUNTER → 2020-06-07 13:41 | Outpatient (CLI) | payer OTHER, SELFPAY ==
[2020-06-07 15:27] LABS: TSH w/ Reflex to FT4 1.22 uIU/mL (0.47-4.68)
== END ==
PROVIDERS: PCP Family Medicine; Referring Provider Family Medicine; Visit Provider Family Medicine
DX: E03.9 Hypothyroidism, unspecified (principal)
CPT/HCPCS: 36415; 84443

== ENCOUNTER → 2020-11-07 16:42 | Outpatient (CLI) | payer OTHER, SELFPAY ==
[2020-11-07 17:33] LABS: COVID19 -Nasal RAPID Negative (Negative)
== END ==
PROVIDERS: PCP Family Medicine; Visit Provider Physician Assistant
DX: R05 Cough (principal)
CPT/HCPCS: 87635

== ENCOUNTER 2021-01-28 09:50 | Emergency (ER) | payer OTHER, SELFPAY ==
--- NOTE | 2021-01-28 09:59 | DI.US.S_ITS ---
PROCEDURE: US OB <= 14 WEEKS FETUS INDICATIONS: BLEEDING OUTSIDE/PRIOR DATING DATA: Last menstrual period (LMP): 12/19/2020 . LMP-based estimated date of delivery (GUILLERMO): 09/25/2021 . First dating scan (date and location): 01/28/2021 . Estimated date of delivery (GUILLERMO) from first dating scan: 09/23/2021 . TECHNIQUE: Real-time scanning was performed of the fetuses and maternal pelvic organs, with image documentation. Endovaginal scanning: Performed for better visualization of the fetuses and maternal adnexal structures. COMPARISON: [facility], OB <= 14 WEEKS FETUS, 08/31/2018, 15:40. FINDINGS: A single living intrauterine gestation is present with a heart rate of 114 beats per minute. [place]-rump length is 4 mm, corresponding to a 6 week 0 day gestation. There is a 26 mm complex nonvascular fluid collection adjacent to the gestational sac, consistent with subchorionic hemorrhage. Measurement variability in dating: +/- 4 weeks by LMP, +/- 7 days by mean sac diameter (use before 6 weeks gestation if crown-rump length unable to be measured), +/- 5 days by crown-rump length (up to 8 weeks 6 days gestation), +/- 7 days by crown-rump length (up to 13 weeks 6 days gestation). Maternal organs: A solid hyperechoic nonvascular right adnexal mass measuring 38 mm, suggestive of a dermoid. Left sided corpus luteal cyst. . IMPRESSION: 1. Single living intrauterine gestation. Small perigestational hemorrhage. 2. Findings suggestive of right dermoid. Dictated by: Víctor Don M.D. on 01/28/2021 at 10:11 Approved by: Víctor Don M.D. on 01/28/2021 at 10:13
[2021-01-28 10:01] VITALS: BP 149/75; PULSE 97; RESP 18; TEMP 36.2; O2SAT 99
[2021-01-28 10:17] LABS: Appearance Urine UA CLEAR; Bacteria Urine None Seen; Bilirubin Urine UA NEGATIVE (NEGATIVE); Color Urine UA YELLOW; Glucose Urine UA NEGATIVE (Negative); Ketones Urine UA NEGATIVE (NEGATIVE); Leukocyte Esterase Urine UA NEGATIVE (NEGATIVE); Nitrite Urine UA NEGATIVE (Negative); Occult Blood Urine UA NEGATIVE (Negative); Protein Urine UA NEGATIVE (Negative); RBC Urine None Seen (0-5/HPF); Specific Gravity Urine UA <=1.005 (1.000-1.035); Urobilinogen Urine UA 0.2 E.U./dL (0.2); WBC Urine None Seen (0-5/HPF)
[2021-01-28 10:23] LABS: pH Urine UA 6.5 (4.5-8.0)
[2021-01-28 10:36] LABS: Culture Indicated Urine Cult Not Indicated; Urine Comments Microscopic Normal
[2021-01-28 10:38] LABS: Add Manual Diff / Slide Review NO; Basophils Absolute Auto 100 /uL (0-100); Basophils Percent Auto 0.9 % (0-2); Eosinophils Absolute Auto 100 /uL (0-450); Eosinophils Percent Auto 0.6 % (2-4); Hematocrit 39.4 % (36-46); Hemoglobin 13.5 g/dL (12.0-16.0); Lymphocytes Absolute Auto 2300 /uL (1100-4500); Lymphocytes Percent Auto 24.1 % (25-40); Mean Corpuscular HGB Conc 34.2 % (30-36); Mean Corpuscular Hemoglobin 30.4 PG (26-34); Mean Corpuscular Volume 88.9 fL (80-100); Monocytes Absolute Auto 600 /uL (0-900); Monocytes Percent Auto 6.3 % (3-14); Neutrophils Absolute Auto 6400 /uL (1500-7000); Neutrophils Percent Auto 68.1 % (50-75); Platelet Count 314 X10^3/uL (150-400); Red Blood Cell Count 4.44 X10^6/uL (4.0-5.2); Red Cell Distribution Width 12.8 % (11.6-14.8); White Blood Cell Count 9.5 X10^3/uL (4.5-11.0)
[2021-01-28 10:47] LABS: Alanine Aminotransferase 20 IU/L (<35); Albumin 4.9 g/dL (3.5-5.0); Albumin Globulin Ratio 1.5 (1.0-2.8); Alkaline Phosphatase 37 U/L (38-126); Aspartate Aminotransferase 28 IU/L (14-36); BUN Creatinine Ratio 17.4 (6-22); Blood Urea Nitrogen 8 mg/dL (7-17); Calcium 9.9 mg/dL (8.4-10.2); Carbon Dioxide 24 mmol/L (22-32); Chloride 105 mmol/L (98-107); Estimated Glomerular Filt Rate > 60.0 mL/min (>60); Globulin 3.2 g/dL (1.7-4.1); Glucose 86 mg/dL (70-100); HEMOLYSIS < 15 (0-50); Potassium 3.5 mmol/L (3.4-5.1); Sodium 138 mmol/L (137-145); Total Protein 8.1 g/dL (6.3-8.2)
[2021-01-28 11:29] LABS: HCG Quantitative /Beta subunit 25881 mIU/mL
--- NOTE | 2021-01-28 11:42 | ED_ITS ---
HPI - General Chief complaint: Vaginal Bleeding Stated complaint: possible miscarriage. 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 Patient noted that she has had blood when she urinates or wipes. She has not had any active bleeding on the underwear. She has not really had much abdominal discomfort some mild cramping. Patient denies any other symptoms. Patient by dates would be approximately 6 weeks . She has seen Dr. cuevas for her care in the past and has an appointment scheduled when she is 11 weeks . She denies any recent trauma injuries, denies any current abdominal pain. No fevers or chills. No nausea or vomiting. No other GI or urinary symptoms. She has not had any new vaginal discharge. No dysuria, urgency or frequency. 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 Patient does also has a history of dermoid cyst which was removed she was a teenager. Related Data Home Medications Medication Instructions Recorded Confirmed prenat.vits,chas,[id number] 1 tab PO DAILY 08/27/18 11/07/20 Previous Rx's Medication Instructions Recorded clindamycin phosphate 1 % topical 1 applic TOPICAL DAILY #75 ml 07/13/20 gel, once daily levothyroxine 88 mcg tablet 88 mcg PO DAILY #90 tab 08/14/20 Allergies Allergy/AdvReac Type Severity Reaction Status Date / Time Penicillins AdvReac Hives Verified 01/28/21 10:04 Review of Systems Review of Systems ROS Unobtainable: All systems reviewed & are unremarkable except as noted in HPI and below Exam Narrative Exam Narrative: GENERAL: Alert and oriented x three, female in mild distress. HEENT: Head normocephalic, atraumatic, EOMI, pupils reactive, face symmetric, moist mucous membranes NECK: Supple, full range of motion CARDIOVASCULAR: Regular rate and rhythm without murmurs, rubs or gallops. RESPIRATORY: Breath sounds equal bilaterally, no wheezes rales or rhonchi. ABDOMEN: Soft, nontender. Normoactive bowel sounds all 4 quadrants. No guarding or rebound, rigidity, no mass EXTREMITIES: Normal range of motion. NEUROLOGICAL: Cranial nerves II through XII grossly intact. Moving all extremi ties SKIN: Warm, dry, no petechiae, no rashes or lesions. Initial Vital Signs Initial Vital Signs: Vital Signs Temperature 97.1 F L 01/28/21 10:01 Pulse Rate 97 H 01/28/21 10:01 Respiratory Rate 18 01/28/21 10:01 Blood Pressure 149/75 H 01/28/21 10:01 Pulse Oximetry 99 01/28/21 10:01 Course Orders Ordered: ED Orders 01/28/21 10:20 ABO RH Type Stat Complete Blood Count AUTO DIFF Stat Comprehensive Metabolic Panel Stat HCG Quantitative /Beta subunit Stat Vital Signs Vital signs: Vital Signs - 8 hr 01/28/21 12:06 Pulse Rate 75 Respiratory Rate 18 Blood Pressure 103/56 L Pulse Oximetry 100 MDM - OB/Uterine Contractions Lab Data Result diagrams: 01/28/21 10:20 01/28/21 10:20 Labs: Lab Results 01/28/21 01/28/21 01/28/21 Range/Units 10:06 10:20 10:20 WBC 9.5 (4.5-11.0) X10^3/uL RBC 4.44 (4.0-5.2) X10^6/uL Hgb 13.5 (12.0-16.0) g/dL Hct 39.4 (36-46) % MCV 88.9 (80-100) fL MCH 30.4 (26-34) PG MCHC 34.2 (30-36) % RDW 12.8 (11.6-14.8) % Plt Count 314 (150-400) X10^3/uL Neut % (Auto) 68.1 (50-75) % Lymph % (Auto) 24.1 L (25-40) % Menard % (Auto) 6.3 (3-14) % Eos % (Auto) 0.6 L (2-4) % Baso % (Auto) 0.9 (0-2) % Neut # (Auto) 6400 (4993-0549) /uL Lymph # (Auto) 2300 (1240-2979) /uL Menard # (Auto) 600 (0-900) /uL Eos # (Auto) 100 (0-450) /uL Baso # (Auto) 100 (0-100) /uL Sodium 138 (137-145) mmol/L Potassium 3.5 (3.4-5.1) mmol/L Chloride 105 (98-107) mmol/L Carbon Dioxide 24 (22-32) mmol/L BUN 8 (7-17) mg/dL Creatinine 0.46 L (0.52-1.04) mg/dL Estimated GFR > 60.0 (>60) mL/min BUN/Creatinine Ratio 17.4 (6-22) Glucose 86 (70-100) mg/dL Calcium 9.9 (8.4-10.2) mg/dL Total Bilirubin 1.0 (0.2-1.3) mg/dL AST 28 (14-36) IU/L ALT 20 (<35) IU/L Alkaline Phosphatase 37 L (38-126) U/L Total Protein 8.1 (6.3-8.2) g/dL Albumin 4.9 (3.5-5.0) g/dL Globulin 3.2 (1.7-4.1) g/dL Albumin/Globulin Ratio 1.5 (1.0-2.8) HCG, Quant 80686 mIU/mL Urine Color Yellow Urine Appearance Clear Urine pH 6.5 (4.5-8.0) Ur Specific [place] <=1.005 (1.000-1.035) Urine Protein Negative (Negative) Urine Glucose (UA) Negative (Negative) g/dL Urine Ketones Negative (NEGATIVE) Urine Occult Blood Negative (Negative) Urine Nitrate Negative (Negative) Urine Bilirubin Negative (NEGATIVE) Urine Urobilinogen 0.2 (0.2) E.U./dL Ur Leukocyte Esterase Negative (NEGATIVE) Urine RBC None seen (0-5/HPF) Urine WBC None seen (0-5/HPF) Urine Bacteria None seen (None) Ur Culture Indicated? Cult not indicated Micro UA Comment Microscopic normal Blood Type 01/28/21 Range/Units 10:20 WBC (4.5-11.0) X10^3/uL RBC (4.0-5.2) X10^6/uL Hgb (12.0-16.0) g/dL Hct (36-46) % MCV (80-100) fL MCH (26-34) PG MCHC (30-36) % RDW (11.6-14.8) % Plt Count (150-400) X10^3/uL Neut % (Auto) (50-75) % Lymph % (Auto) (25-40) % Menard % (Auto) (3-14) % Eos % (Auto) (2-4) % Baso % (Auto) (0-2) % Neut # (Auto) (0327-0957) /uL Lymph # (Auto) (4311-7804) /uL Menard # (Auto) (0-900) /uL Eos # (Auto) (0-450) /uL Baso # (Auto) (0-100) /uL Sodium (137-145) mmol/L Potassium (3.4-5.1) mmol/L Chloride (98-107) mmol/L Carbon Dioxide (22-32) mmol/L BUN (7-17) mg/dL Creatinine (0.52-1.04) mg/dL Estimated GFR (>60) mL/min BUN/Creatinine Ratio (6-22) Glucose (70-100) mg/dL Calcium (8.4-10.2) mg/dL Total Bilirubin (0.2-1.3) mg/dL AST (14-36) IU/L ALT (<35) IU/L Alkaline Phosphatase (38-126) U/L Total Protein (6.3-8.2) g/dL Albumin (3.5-5.0) g/dL Globulin (1.7-4.1) g/dL Albumin/Globulin Ratio (1.0-2.8) HCG, Quant mIU/mL Urine Color Urine Appearance Urine pH (4.5-8.0) Ur Specific [place] (1.000-1.035) Urine Protein (Negative) Urine Glucose (UA) (Negative) g/dL Urine Ketones (NEGATIVE) Urine Occult Blood (Negative) Urine Nitrate (Negative) Urine Bilirubin (NEGATIVE) Urine Urobilinogen (0.2) E.U./dL Ur Leukocyte Esterase (NEGATIVE) Urine RBC (0-5/HPF) Urine WBC (0-5/HPF) Urine Bacteria (None) Ur Culture Indicated? Micro UA Comment Blood Type B Positive Imaging Data US - OB: Radiologist's Impression: [address] [id number] ReportSigned Patient: Smiley Powell CMR#: [id number]: [id number]:[id number]/Sex: 25 / FDate of Service: 01/28/21Loc: EDAccession Number: [id number] Procedure: US OB <= 14 weeks fetus Ordering Provider: Simi Alexander D.O. PROCEDURE: US OB <= 14 WEEKS FETUS INDICATIONS: BLEEDING OUTSIDE/PRIOR DATING DATA: Last menstrual period (LMP): 12/19/2020 . LMP-based estimated date of delivery (GUILLERMO): 09/25/2021 . First dating scan (date and location): 01/28/2021 . Estimated date of delivery (GUILLERMO) from first dating scan: 09/23/2021 . TECHNIQUE: Real-time scanning was performed of the fetuses and maternal pelvic organs, with image documentation. Endovaginal scanning: Performed for better visualization of the fetuses and maternal adnexal structures. COMPARISON: [facility], OB <= 14 WEEKS FETUS, 08/31/2018, 15:40. FINDINGS: A single living intrauterine gestation is present with a heart rate of 114 beats per minute. [place]-rump length is 4 mm, corresponding to a 6 week 0 day gesta tion. There is a 26 mm complex nonvascular fluid collection adjacent to the gestational sac, consistent with subchorionic hemorrhage. Measurement variability in dating: +/- 4 weeks by LMP, +/- 7 days by mean sac diameter (use before 6 weeks gestation if crown-rump length unable to be measured), +/- 5 days by crown-rump length (up to 8 weeks 6 days gestation), +/- 7 days by crown-rump length (up to 13 weeks 6 days gestation). Maternal organs: A solid hyperechoic nonvascular right adnexal mass measuring 38 mm, suggestive of a dermoid. Left sided corpus luteal cyst. . IMPRESSION: 1. Single living intrauterine gestation. Small perigestational hemorrhage. 2. Findings suggestive of right dermoid. Dictated by: Víctor Don M.D. on 01/28/2021 at 10:11 Approved by: Víctor Don M.D. on 01/28/2021 at 10:13 MDM Narrative Medical decision making narrative: This is a 25-year-old female comes emergency department with concern for possible miscarriage. Patient has had 4 pregnancies total, 1 completed in the live in to had miscarriages. Patient has had some mild bleeding noted with urination and when she wipes. She has had very mild pain. She does have a provider but is not scheduled to see them for another 5 weeks. Patient's labs and urinalysis are reassuring. Her ultrasound does show an intrauterine fetus at 6 weeks consistent with current dates. Her rate was 114. There is a subchorionic hemorrhage noted likely cause of her bleeding. Discussed with patient and her significant other today's findings. Pelvic rest and follow up with her care provider. All qu estions were answered. Discharge Plan Departure Patient Disposition: Home Clinical Impression: Subchorionic hemorrhage Qualifiers: Trimester: first trimester Activity Restrictions/Additional Instructions: Follow up your provider. Call for an appointment. Your labs and urinalysis today do not show any major changes, your ultrasound shows intrauterine and by dates is at 6 weeks. There is a subchorionic hemorrhage noted. I recommend pelvic rest, no lifting greater than 10-15 lb. Please continue any home medications in her prenatals as prescribed. You may take Tylenol up to a 1000 mg every 8 hours if needed for pain. Please return for severe pain, lightheadedness or passing out, persistent vomiting, rapidly worsening symptoms, going through a pad more than once hourly or for having rapidly worsening bleeding or other new or concerning symptoms. Prescriptions: No Action clindamycin phosphate 1 % gel, once daily 1 applic topical DAILY Qty: 75 RF: 0 levothyroxine 88 mcg tablet 88 mcg PO DAILY Qty: 90 RF: 2 prenat.vits,chas,[id number] tablet 1 tab PO DAILY RF: 0 Referrals: Elaine Brown DO [Primary Care Provider] -
[2021-01-28 12:06] VITALS: BP 103/56; PULSE 75; RESP 18; O2SAT 100
== END 2021-01-28 12:07 | disposition home or self-care (01) ==
PROVIDERS: Emergency Provider Emergency Medicine; PCP Family Medicine
DX: O41.8X90 Other specified disorders of amniotic fluid and membranes, unspecified trimester, not applicable or unspecified (principal); O46.8X1 Other antepartum hemorrhage, first trimester; Z3A.01 Less than 8 weeks gestation of pregnancy
CPT/HCPCS: 36415; 76801; 76817; 80053; 81001; 84702; 85025; 86900; 86901; 99283; 99284

== ENCOUNTER → 2021-02-16 15:12 | Outpatient (CLI) | payer OTHER, SELFPAY ==
--- NOTE | 2021-02-16 15:13 | DI.US.S_ITS ---
PROCEDURE: US OB <= 14 WEEKS FETUS INDICATIONS: Initial US for Dating and Viability please OUTSIDE/PRIOR DATING DATA: Last menstrual period (LMP): 12/19/2020 LMP-based estimated date of delivery (GUILLERMO): 09/25/2021. First dating scan (date and location): 01/28/2021. Estimated date of delivery (GUILLERMO) from first dating scan: 09/23/2021. TECHNIQUE: Real-time scanning was performed of the fetus and maternal pelvic organs, with image documentation. Endovaginal scanning was also performed to better visualize the fetus and maternal ovaries. COMPARISON: [facility], OB <= 14 WEEKS FETUS, 01/28/2021, 10:39. FINDINGS: Embryo: [place]-rump length measures 2.3 cm corresponding to 9 weeks 0 days. Perigestational sac bleed site measuring 2.2 x 0.9 x 1.0 cm. Heart rate: 178 Measurement variability in dating: +/- 4 weeks by LMP, +/- 7 days by mean sac diameter (use before 6 weeks gestation if crown-rump length not able to be measured), +/- 5 days by crown-rump length (up to 8 weeks 6 days gestation), +/- 7 days by crown-rump length (up to 13 weeks 6 days gestation). Maternal organs: Complex right ovarian mass redemonstrated similar in appearance and size to prior examination measuring up to 2.8 cm. Left corpus luteal cyst present. IMPRESSION: 8 week 5 day single living IUP and perigestational sac bleed site again seen similar to prior examination. Complex right ovarian mass redemonstrated with sonographic characteristics suggesting ovarian dermoid. Dictated by: Bhargav Griffin [facility] Interpreted: Juan Esquivel MD on 02/16/2021 at 15:45 Transcribed by: JIE on 02/16/2021 at 15:49 Approved by: Juan Esquivel M.D. on 02/16/2021 at 16:06
== END ==
PROVIDERS: PCP Family Medicine; Referring Provider Family Medicine; Visit Provider Family Medicine
DX: O34.81 Maternal care for other abnormalities of pelvic organs, first trimester; Z36.87 Encounter for antenatal screening for uncertain dates; N83.12 Corpus luteum cyst of left ovary; N83.9 Noninflammatory disorder of ovary, fallopian tube and broad ligament, unspecified; Z3A.08 8 weeks gestation of pregnancy
CPT/HCPCS: 76801

== ENCOUNTER → 2021-02-22 13:19 | Outpatient (CLI) | payer OTHER, SELFPAY ==
[2021-02-22 13:42] LABS: Appearance Urine UA CLEAR; Bilirubin Urine UA NEGATIVE (NEGATIVE); Color Urine UA YELLOW; Glucose Urine UA TRACE g/dL (Negative); Ketones Urine UA 1+ (NEGATIVE); Leukocyte Esterase Urine UA NEGATIVE (NEGATIVE); Nitrite Urine UA NEGATIVE (Negative); Occult Blood Urine UA NEGATIVE (Negative); Protein Urine UA NEGATIVE (Negative); Specific Gravity Urine UA 1.025 (1.000-1.035); Urobilinogen Urine UA 0.2 E.U./dL (0.2)
[2021-02-22 13:46] LABS: Add Manual Diff / Slide Review NO; Basophils Absolute Auto 100 /uL (0-100); Basophils Percent Auto 0.7 % (0-2); Eosinophils Absolute Auto 100 /uL (0-450); Eosinophils Percent Auto 0.8 % (2-4); Hematocrit 41.2 % (36-46); Hemoglobin 14.1 g/dL (12.0-16.0); Lymphocytes Absolute Auto 2500 /uL (1100-4500); Lymphocytes Percent Auto 24.1 % (25-40); Mean Corpuscular HGB Conc 34.1 % (30-36); Mean Corpuscular Hemoglobin 30.7 PG (26-34); Mean Corpuscular Volume 89.8 fL (80-100); Monocytes Absolute Auto 300 /uL (0-900); Monocytes Percent Auto 3.4 % (3-14); Neutrophils Absolute Auto 7300 /uL (1500-7000); Platelet Count 301 X10^3/uL (150-400); Red Blood Cell Count 4.59 X10^6/uL (4.0-5.2); Red Cell Distribution Width 13.1 % (11.6-14.8); White Blood Cell Count 10.2 X10^3/uL (4.5-11.0)
[2021-02-22 14:20] LABS: Free T4, Direct Thyroxine 1.46 ng/dL (0.78-2.19)
[2021-02-22 14:34] LABS: TSH w/ Reflex to FT4 1.71 uIU/mL (0.47-4.68); Thyroid Stimulating Hormone 1.71 uIU/mL (0.47-4.68)
[2021-02-22 15:55] LABS: Hepatitis B Surface Antigen NEGATIVE s/c (NEGATIVE)
[2021-02-22 16:06] LABS: HIV 1 & 2 Ab/Ag 4th Gen Combo NEGATIVE (NEGATIVE); Hep C Virus Ab w/Reflex Quant NEGATIVE s/c (NEGATIVE)
[2021-02-23 09:43] LABS: RPR Screen Non Reactive (Non Reactive); Varicella IgG Antibody 874 index (Immune >165)
== END ==
PROVIDERS: PCP Family Medicine; Referring Provider Family Medicine; Visit Provider Family Medicine
DX: Z34.81 Encounter for supervision of other normal pregnancy, first trimester (principal); E03.8 Other specified hypothyroidism
CPT/HCPCS: 36415; 80055; 81003; 84439; 84443; 86787; 86803; 86850; 86900; 86901; 87086; 87389

== ENCOUNTER → 2021-04-03 10:17 | Outpatient (CLI) | payer OTHER, SELFPAY ==
[2021-04-03 12:23] LABS: Alanine Aminotransferase 12 IU/L (<35); Albumin 4.4 g/dL (3.5-5.0); Albumin Globulin Ratio 1.5 (1.0-2.8); Alkaline Phosphatase 40 U/L (38-126); Aspartate Aminotransferase 21 IU/L (14-36); BUN Creatinine Ratio 13.5 (6-22); Bilirubin Total 0.7 mg/dL (0.2-1.3); Blood Urea Nitrogen 5 mg/dL (7-17); Calcium 9.5 mg/dL (8.4-10.2); Carbon Dioxide 25 mmol/L (22-32); Chloride 102 mmol/L (98-107); Estimated Glomerular Filt Rate > 60.0 mL/min (>60); Globulin 2.9 g/dL (1.7-4.1); Glucose 78 mg/dL (70-100); HEMOLYSIS < 15 (0-50); Potassium 3.7 mmol/L (3.4-5.1); Sodium 136 mmol/L (137-145); Total Protein 7.3 g/dL (6.3-8.2)
[2021-04-03 12:35] LABS: Free T4, Direct Thyroxine 1.25 ng/dL (0.78-2.19)
[2021-04-03 12:49] LABS: Thyroid Stimulating Hormone 2.71 uIU/mL (0.47-4.68)
== END ==
PROVIDERS: PCP Family Medicine; Referring Provider Family Medicine; Visit Provider Family Medicine
DX: E03.9 Hypothyroidism, unspecified (principal); R10.11 Right upper quadrant pain
CPT/HCPCS: 36415; 80053; 84439; 84443

== ENCOUNTER → 2021-04-18 09:08 | Outpatient (CLI) | payer OTHER, SELFPAY ==
--- NOTE | 2021-04-18 09:09 | DI.US.S_ITS ---
PROCEDURE: US ABDOMEN COMPLETE INDICATIONS: RIGHT UPPER QUADRANT/RIGHT FLANK PAIN. TECHNIQUE: Real-time scanning was performed of the abdominal and retroperitoneal organs, with image documentation. COMPARISON: [facility], US, US ABDOMEN COMPLETE, 01/21/2019, 15:11. FINDINGS: Liver: Liver is normal in size and homogeneous in echotexture. Gallbladder: Sonolucent without evidence cholelithiasis, gallbladder wall thickening or pericholecystic fluid. No sonographic Muir sign. Biliary ducts: Intrahepatic bile ducts are non-dilated. Extrahepatic bile duct caliber measures 4.7 mm. Normal is 6-7 mm or less in diameter, or 10 mm or less post-cholecystectomy. Pancreas: Visualized portions of the pancreas are sonographically normal. Spleen: Spleen is normal in size and homogeneous in echotexture. Kidneys: Kidneys are normal in size and echotexture. Right kidney measures 12.4 cm long; left kidney measures 13.6 cm long. No hydronephrosis or nephrolithiasis. No solid masses. Aorta: Visualized aorta is normal in caliber at less than 3 cm. Iliacs: Proximal common iliac arteries are normal in caliber at less than 2.5 cm. IVC: Intrahepatic inferior vena cava is patent. Miscellaneous: No free abdominal fluid. Incidental note is made of a and intrauterine with heart rate of 157 beats per minute. IMPRESSION: 1. Unremarkable ultrasound the abdomen. No hydronephrosis. 2. Single live intrauterine , partially imaged Approved by: Ambrocio Spencer M.D. on 04/18/2021 at 12:03
== END ==
PROVIDERS: PCP Family Medicine; Referring Provider Family Medicine; Visit Provider Family Medicine
DX: R10.11 Right upper quadrant pain (principal); Z33.1 Pregnant state, incidental
CPT/HCPCS: 76700

== ENCOUNTER → 2021-04-19 11:04 | Outpatient (CLI) | payer OTHER, SELFPAY ==
[2021-04-23 21:17] LABS: AFP Value 35.9 ng/mL (.); Gest Age on Col Date 17.3 weeks (.); Insulin Dep Diabetes No (.); OSBR Risk 1IN 10000 (.); Results Report (.); Test Results *Screen Negative* (.)
== END ==
PROVIDERS: PCP Family Medicine; Referring Provider Family Medicine; Visit Provider Family Medicine
DX: Z34.92 Encounter for supervision of normal pregnancy, unspecified, second trimester (principal); Z3A.17 17 weeks gestation of pregnancy
CPT/HCPCS: 36415; 82105

== ENCOUNTER → 2021-06-18 15:50 | Outpatient (CLI) | payer OTHER, SELFPAY ==
[2021-06-18 16:36] LABS: Appearance Urine UA CLEAR; Bilirubin Urine UA NEGATIVE (NEGATIVE); Color Urine UA YELLOW; Glucose Urine UA NEGATIVE (Negative); Ketones Urine UA NEGATIVE (NEGATIVE); Leukocyte Esterase Urine UA NEGATIVE (NEGATIVE); Nitrite Urine UA NEGATIVE (Negative); Occult Blood Urine UA NEGATIVE (Negative); Protein Urine UA NEGATIVE (Negative); Specific Gravity Urine UA <=1.005 (1.000-1.035); Urobilinogen Urine UA 0.2 E.U./dL (0.2)
[2021-06-18 17:03] LABS: pH Urine UA 6.5 (4.5-8.0)
[2021-06-18 17:09] LABS: RBC Urine None Seen (0-5/HPF); WBC Urine None Seen (0-5/HPF)
[2021-06-18 17:10] LABS: Bacteria Urine None Seen; Culture Indicated Urine Cult Not Indicated; Squamous Epithelial Cell Urine None Seen (0-5/HPF)
== END ==
PROVIDERS: PCP Family Medicine; Referring Provider Family Medicine; Visit Provider Family Medicine
DX: R30.0 Dysuria (principal)
CPT/HCPCS: 81001

== ENCOUNTER → 2021-07-03 11:07 | Outpatient (CLI) | payer OTHER, SELFPAY ==
[2021-07-03 13:40] LABS: Add Manual Diff / Slide Review NO; Basophils Absolute Auto 0 /uL (0-100); Basophils Percent Auto 0.4 % (0-2); Eosinophils Absolute Auto 100 /uL (0-450); Eosinophils Percent Auto 0.8 % (2-4); Hemoglobin 12.5 g/dL (12.0-16.0); Lymphocytes Absolute Auto 1700 /uL (1100-4500); Lymphocytes Percent Auto 16.2 % (25-40); Mean Corpuscular HGB Conc 34.8 % (30-36); Mean Corpuscular Hemoglobin 30.3 PG (26-34); Mean Corpuscular Volume 87.1 fL (80-100); Monocytes Absolute Auto 500 /uL (0-900); Monocytes Percent Auto 5.1 % (3-14); Neutrophils Absolute Auto 8200 /uL (1500-7000); Neutrophils Percent Auto 77.5 % (50-75); Platelet Count 278 X10^3/uL (150-400); Red Blood Cell Count 4.14 X10^6/uL (4.0-5.2); Red Cell Distribution Width 13.6 % (11.6-14.8); White Blood Cell Count 10.6 X10^3/uL (4.5-11.0)
[2021-07-03 14:23] LABS: GTT (PREG) 1 Hour PP 50gm Dose 107 mg/dL (76-139)
--- NOTE | 2021-07-03 15:00 | DI.MRI.S_ITS ---
PROCEDURE: MR ABDOMEN PELVIS WO CON COMPARISON: None. INDICATIONS: Severe RLQ pain FINDINGS: There is a intrauterine gestation present. There is a possible normal appendix identified. No secondary signs of acute appendicitis. No free air or free fluid or abscess. Liver, spleen, pancreas, adrenals, and left kidney are unremarkable in appearance. There is mild right hydronephrosis of . IMPRESSION: MRI of the abdomen and pelvis without contrast in the setting of demonstrates no evidence of acute appendicitis. There is mild right hydronephrosis of . Dictated by: Tyler Abdullahi M.D. on 07/03/2021 at 13:15 Approved by: Tyler Abdullahi M.D. on 07/03/2021 at 13:19
== END ==
PROVIDERS: PCP Family Medicine; Referring Provider Family Medicine; Visit Provider Family Medicine
DX: R10.31 Right lower quadrant pain; O99.891 Other specified diseases and conditions complicating pregnancy; N13.30 Unspecified hydronephrosis; Z3A.00 Weeks of gestation of pregnancy not specified
CPT/HCPCS: 36415; 72195; 82950; 85025

== ENCOUNTER → 2021-07-16 10:43 | Outpatient (CLI) | payer OTHER, SELFPAY | PROVIDERS: PCP Family Medicine; Referring Provider Family Medicine; Visit Provider Family Medicine | DX: E03.8 Other specified hypothyroidism (principal) | CPT/HCPCS: 36415; 84439; 84443 ==

== ENCOUNTER → 2021-08-30 11:27 | Outpatient (CLI) | payer OTHER, SELFPAY ==
[2021-08-31 11:38] LABS: Strep Grp B PCR POS for Grp B Strep
== END ==
PROVIDERS: PCP Family Medicine; Visit Provider Family Medicine
DX: Z36.85 Encounter for antenatal screening for Streptococcus B (principal); Z3A.36 36 weeks gestation of pregnancy
CPT/HCPCS: 87186; 87653

== ENCOUNTER 2021-09-24 07:02 | Inpatient (IN) | payer OTHER, SELFPAY ==
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
[2021-09-24 08:32] LABS: Add Manual Diff / Slide Review NO; Basophils Absolute Auto 0 /uL (0-100); Basophils Percent Auto 0.4 % (0-2); Eosinophils Absolute Auto 100 /uL (0-450); Eosinophils Percent Auto 1.3 % (2-4); Hematocrit 32.5 % (36-46); Hemoglobin 10.9 g/dL (12.0-16.0); Lymphocytes Absolute Auto 1900 /uL (1100-4500); Lymphocytes Percent Auto 21.2 % (25-40); Mean Corpuscular HGB Conc 33.7 % (30-36); Mean Corpuscular Hemoglobin 27.5 PG (26-34); Mean Corpuscular Volume 81.7 fL (80-100); Monocytes Absolute Auto 600 /uL (0-900); Monocytes Percent Auto 6.8 % (3-14); Neutrophils Absolute Auto 6500 /uL (1500-7000); Neutrophils Percent Auto 70.3 % (50-75); Platelet Count 255 X10^3/uL (150-400); Red Blood Cell Count 3.97 X10^6/uL (4.0-5.2); Red Cell Distribution Width 14.9 % (11.6-14.8); White Blood Cell Count 9.2 X10^3/uL (4.5-11.0)
[2021-09-24] MEDS: LACTATED RINGERS 1,000 ML 100 ML IV ×2 (08:49→15:47)
[2021-09-24] MEDS: CEFAZOLIN 2 GM/20 ML SYRINGE IV (08:53)
[2021-09-24] MEDS: OXYTOCIN PREMIX 30 UNIT/500 ML PLAST..BAG IV (08:59)
[2021-09-24 10:12] VITALS: BP 129/80
[2021-09-24 10:34] LABS: COVID19 -Nasal RAPID Negative (Negative)
--- NOTE | 2021-09-24 14:20 | PM.AN.REGBLK ---
Regional Block Pre-procedure Procedure: Continuous Lumbar Epidural for L&D Attending OB provider: Elaine Brown PMH/ROS narrative: term induction, hypothyroid adequately treated, h/o Guillan-Montevallo Syndrome, resolved, current with neurology, also h/o mild Chiari malformation. Previous epidural and diagnostic spinal without issue. ASA Class: II Labs: Hct 32.5 % (36-46) L 09/24/21 08:20 Plt Count 255 X10^3/uL (150-400) 09/24/21 08:20 Medications: Current Medications Generic Name Dose Route Start Last Admin Trade Name Freq PRN Reason Stop Dose Admin Calcium Carbonate 1,000 mg 09/24/21 07:16 Calcium Carbonate 500 Mg Tab PO Q2HR PRN Dyspepsia Carboprost Tromethamine 250 mcg 09/24/21 07:16 Carboprost 250 Mcg/Ml Ampul IM Q90M PRN Bleeding Cefazolin Sodium 1 gm 09/24/21 15:00 Cefazolin 1 Gm Vial IV Q8H LEO Diphenhydramine HCl 25 mg 09/24/21 08:40 Diphenhydramine 50 Mg/Ml Vial IV Q10M PRN Pruritis Fentanyl 50 mcg 09/24/21 07:16 Fentanyl 100 Mcg/2 Ml Inj IV Q1H PRN Pain, Moderate (4-6) Oxytocin/Lactated Ringer's 30 unit in 500 mls @ 200 mls/hr 09/24/21 07:16 Oxytocin Premix IV CONT PRN Bleeding Protocol Tranexamic Acid 1,000 mg/ 100 mls @ 200 mls/hr 09/24/21 07:16 Sodium Chloride IV NOW PRN Bleeding Lactated Ringer's 1,000 mls @ 100 mls/hr 09/24/21 07:30 09/24/21 08:49 Lactated Ringers IV 100 mls/hr CONT LEO Administration Oxytocin/Lactated Ringer's 30 unit in 500 mls @ 3 mls/hr 09/24/21 07:30 09/24/21 08:59 Oxytocin Premix IV 3 milliunit/min TITRATE LEO 3 mls/hr Administration Protocol 3 MILLIUNIT/MIN FENT 2MCG/ML BUPIV 0.125% EPI 200 mcg in 100 mls @ 6 mls/hr 09/24/21 08:45 Fentanyl/Bupiv/Ns 2mcg/Ml - 0.125% EPIDURAL CONT LEO Methylergonovine Maleate 0.2 mg 09/24/21 07:16 Methylergonovine 0.2 Mg/Ml Vial IM NOW PRN Bleeding Methylergonovine Maleate 0.2 mg 09/24/21 07:16 Methylergonovine 0.2 Mg Tablet PO Q6HR PRN Heavy Bleeding Misoprostol 800 mcg 09/24/21 07:16 Misoprostol 200 Mcg Tablet IA NOW PRN Bleeding Misoprostol 1,000 mcg 09/24/21 07:16 Misoprostol 200 Mcg Tablet IA NOW PRN Bleeding Misoprostol 400 mcg 09/24/21 07:16 Misoprostol 200 Mcg Tablet SL NOW PRN Bleeding Nalbuphine HCl 2.5 mg 09/24/21 08:40 Nalbuphine 20 Mg/Ml Ampul IV Q10M PRN Pruritis Ondansetron HCl 4 mg 09/24/21 07:16 Ondansetron 4 Mg/2 Ml Inj IV Q4HR PRN Nausea And Vomiting Oxytocin 10 unit 09/24/21 07:16 Oxytocin 10 Unit/Ml Vial IM NOW PRN Bleeding Allergies: Allergies Allergy/AdvReac Type Severity Reaction Status Date / Time amoxicillin AdvReac Intermediate Hives as Verified 02/19/21 10:14 an Penicillins AdvReac Intermediate Hives as Verified 02/19/21 10:14 an Infant Procedure Insertion date: 09/24/21 Insertion time: 14:40 Prep/Local: betadine x3 and 1% lidocaine Interspace: L3-4 Patient position: sitting Needle: 18 gauge [employer] (CSE: 27g Pencan through Hustead, clear CSF, 1mL 0.25% bupiv MPF) Loss of resistance with: saline ROSA at (cm): 4 Catheter placed at SKIN (cm): 9 Catheter in SPACE (cm): 5 Insertion: No CSF, No Blood, No Paresthesia with insertion, No Paresthesia with injection and No Test dose reaction Initial Medications TEST DOSE time: 14:49 TEST DOSE: 1.5% lidocaine with epinephrine 1:200k (mL): 3 BOLUS DOSE time: 14:50 BOLUS DOSE (mL): 3 BOLUS DOSE med: other (infusate) Infusion INFUSION: 0.125% bupivacaine and with fentanyl 2 mcg/mL Initial rate (mL/hr): 8 Post-procedure Anesthesia time START: 14:32 Anesthesia time END: 17:44 Post-procedure Anesthesia Assessment: Yes CV function: HR/BP stable, Yes Resp function: RR/sat/airway adequate, Yes Mental status appropriate and No Anesthesia complications
[2021-09-24] MEDS: FENT 2MCG/ML BUPIV 0.125% EPI 200 MCG/100 ML PLAST..BAG 6 MCG EPIDURAL (15:10)
--- NOTE | 2021-09-24 15:38 | PM.OBPNLAB ---
Date/Time Date Patient Seen: 09/24/21 Time Patient Seen: 15:30 Pain Control Pain control: epidural Pelvic Exam Dilation (cm): 5 Effacement (%): 90 station: -1 Amniotic membrane status: Ruptured (AROM small amount of clear fluid) Contractions Monitor mode: External Pitocin rate (mU/min): 16 Contraction frequency (min): 3 Contraction pattern: Regular Status status: Category l Heart Rate Baseline: 130 Monitor Accelerations: Present Monitor Decelerations: Absent Monitor Variability: Moderate Assessment and Plan Assessment: active labor Plan: continuous present management Comments: 26 year old at 39+6 weeks, now comfortable with epidural. AROM with clear fluid. Continue pitocin. Anticipate .
[2021-09-24] MEDS: CEFAZOLIN 1 GM VIAL IV (16:55)
--- NOTE | 2021-09-24 18:25 | PM.OBPRVD ---
Labor & Delivery Delivery date: 09/24/21 Induction method: per pitocin protocol Delivery augmentation: rupture of membranes Delivery monitor: external FHT Route of delivery: L&D Laceration Description: Perineal - 1st Degree Delivery repair: chromic Estimated blood loss (mL): 350 Anesthesia Type: Epidural Narrative: 26-year-old G4 now P2 at 39 weeks and 6 days status post spontaneous vaginal delivery 09/24/21 at 5:44 p.m.. Stage I Patient presented for elective induction and received Pitocin per protocol. She went on to receive an epidural with excellent pain control. Active labor began at approximately 2:45 p.m.. Artificial rupture membranes at 3:30 p.m. with clear fluid. heart tones category 1 and 2 throughout stage I due to periods of variable decelerations. Stage I duration 2 hours and 48 minutes. Stage II Patient was complete at 5:33 p.m. with a strong urge to push. She pushed for 11 minutes and delivered a vigorous male at 5:44 p.m.. was vertex and JUSTINO with a double nuchal cord. The first loop of cord was reduced then he delivered and the second loop was reduced as he was being placed on mother's abdomen. Apgars were 7 and 9. No resuscitation of the required beyond drying and stimulating. Stage III Placenta delivered at 5:53 a.m. with gentle traction on the cord. Placenta was intact with a three-vessel cord. Stage III duration 9 minutes. Pitocin bolus given after delivery of placenta. A small first-degree perineal laceration with a flap was repaired with 4-0 chromic in the usual fashion with good approximation and hemostasis. Straight cath performed after repair with 650 mL of clear urine. EBL 350 mL. Needle and sponge counts were correct. The vagina was inspected and no items were left in situ. Patient was doing well with Tamir, her and at bedside. Baby 1: gender: Male Presentation: vertex Position: Right Occiput Anterior Placenta delivery description: Spontaneous Cord Vessel Description: 3 Vessels and Nuchal Cord (x2) score (1 min): 7 score (5 min): 9 Plan for aftercare: Routine care
[2021-09-24] MEDS: IBUPROFEN 600 MG TABLET PO (20:03)
[2021-09-24] MEDS: DERMOPLAST SPRAY 20% 60 ML 1 SPRAY TOP (23:03)
[2021-09-24] MEDS: ACETAMINOPHEN 325 MG TABLET 650 MG PO (23:28)
[2021-09-25] MEDS: IBUPROFEN 600 MG TABLET PO ×2 (02:21→08:38)
[2021-09-25] MEDS: ACETAMINOPHEN 325 MG TABLET 650 MG PO ×3 (03:47→13:14)
[2021-09-25 06:35] LABS: Hemoglobin 9.7 g/dL (12.0-16.0)
[2021-09-25] MEDS: LEVOTHYROXINE 100 MCG TABLET PO (07:04)
--- NOTE | 2021-09-25 08:10 | P.DS_ITS ---
Discharge Providers Provider Date of admission: 09/24/21 07:02 Discharge Date: 09/25/21 Primary care physician: Elaine Brown DO Consults: 09/25/21 18:26 Consult to [employer] Routine Comment: Discharge provider: Elaine Brown DO Summary Hospital Course Date Patient Seen: 09/25/21 Time Patient Seen: 07:45 Diagnoses: 39 weeks of Spontaneous vaginal delivery Hospital Course: 26-year-old G4 now P2 after uncomplicated at 39 weeks and 6 days. Patient came in for elective induction and progressed well with Pitocin. She went on to receive an epidural and deliver a vigorous male . A first- degree perineal laceration was repaired. course uncomplicated. She is ambulating, voiding and passing flatus. Vaginal bleeding is light to moderate and pain controlled with ibuprofen. is going well without concerns in the . Advised patient to call for fevers, severe pain or bleeding through more than a pad an hour. Follow-up in clinic in 6 weeks. Peripartum Data Infant Delivery Method: Natural Vaginal Laceration Description: Perineal - 1st Degree complications: none 1: Gender: Male Disposition of : home Discharge Diagnosis (1) 39 weeks gestation of : Status: Acute (2) Spontaneous vaginal delivery: Status: Acute Status at Discharge Cognitive/behavioral status at discharge: at baseline, oriented Functional status at discharge: independent ambulation Overall status at discharge: patient is progressing back to baseline Time Spent with Patient Time attestation: Total time spent providing and/or coordinating discharge services: Time spent: Less than 30 minutes Objective Labs Result Diagrams: 09/25/21 06:15 Labs: Laboratory Results - last 24 hr 09/24/21 09/24/21 09/24/21 07:16 08:20 08:20 WBC 9.2 RBC 3.97 L Hgb 10.9 L Hct 32.5 L MCV 81.7 MCH 27.5 MCHC 33.7 RDW 14.9 H Plt Count 255 Neut % (Auto) 70.3 Lymph % (Auto) 21.2 L Marion % (Auto) 6.8 Eos % (Auto) 1.3 L Baso % (Auto) 0.4 Neut # (Auto) 6500 Lymph # (Auto) 1900 Marion # (Auto) 600 Eos # (Auto) 100 Baso # (Auto) 0 SARS-CoV-2 (PCR) Negative Blood Type B Positive Antibody Screen Negative 09/25/21 06:15 WBC RBC Hgb 9.7 L Hct 29.0 L MCV MCH MCHC RDW Plt Count Neut % (Auto) Lymph % (Auto) Marion % (Auto) Eos % (Auto) Baso % (Auto) Neut # (Auto) Lymph # (Auto) Marion # (Auto) Eos # (Auto) Baso # (Auto) SARS-CoV-2 (PCR) Blood Type Antibody Screen Exam Vital Signs (past 8 hours): Temperature 98.1? blood pressure 110/64 heart rate 51 respirations 16 Narrative Exam Narrative: General: Awake and alert, no acute distress. HEENT: NCAT, EOMI, moist oral mucosa CV: Regular rate and rhythm, no murmurs, rubs or gallops Lungs: CTAB, no wheezes, rales, or rhonchi Abdomen: Soft, nontender; bowel tones active; uterus firm 1 cm below umbilicus Extremities: Warm, no edema Discharge Plan Discharge Plan Patient Disposition: Home Discharge orders & Medications Prescriptions: New docusate sodium 100 mg Capsule 100 mg PO DAILY Qty: 30 0RF ibuprofen 600 mg Tablet 600 mg PO Q6HR PRN (Reason: Pain, Mild (1-3)) Qty: 30 0RF Continued levothyroxine 100 mcg tablet 100 mcg PO DAILY Qty: 90 2RF prenat.vits,chas,qfm-jjyp-ufden tablet 1 tab PO DAILY 0RF (DME) Double Electric Breast Pump and supplies Standard See Rx Instructions 0RF Rx Instructions: Use daily as directed Follow up/Referrals: Elaine Brown DO [Primary Care Provider] - (please schedule your 6week appt w/ Dr. Brown at check-up) Visit Report/Discharge Packet Stand Alone Forms: Discharge: Care Visit Report Forms: Patient Portal/API, Stroke Signs & Symptoms Discharge Data Primary Care Provider: Elaine Brown
[2021-09-25] MEDS: PRENATAL VIT,CALC/IRON/FOLIC 1 TABLET 1 TAB PO (08:37)
[2021-09-25 08:38] VITALS: TEMP 36.4
[2021-09-25] MEDS: DOCUSATE 100 MG CAPSULE PO (08:38)
[2021-09-25 13:14] VITALS: TEMP 36.4
== END 2021-09-25 15:47 | disposition home or self-care (01) | DRG 807 ==
PROVIDERS: Admitting Provider Family Medicine; PCP Family Medicine; Referring Provider Family Medicine; Visit Provider Family Medicine
DX: O99.284 Endocrine, nutritional and metabolic diseases complicating childbirth (principal); Z37.0 Single live birth; E03.9 Hypothyroidism, unspecified; O99.824 Streptococcus B carrier state complicating childbirth; O69.81X0 Labor and delivery complicated by cord around neck, without compression, not applicable or unspecified; Z3A.39 39 weeks gestation of pregnancy; Z86.16 Personal history of COVID-19; O70.0 First degree perineal laceration during delivery
CPT/HCPCS: 01967; 36415; 59050; 59400; 85014; 85018; 85025; 86850; 86900; 86901; 87635; C9803; G0379; J0690; J2590

== ENCOUNTER → 2022-02-07 10:49 | Outpatient (CLI) | payer OTHER, SELFPAY ==
[2022-02-07 12:12] LABS: Add Manual Diff / Slide Review NO; Basophils Absolute Auto 0 /uL (0-100); Basophils Percent Auto 0.5 % (0-2); Eosinophils Absolute Auto 100 /uL (0-450); Eosinophils Percent Auto 1.9 % (2-4); Hematocrit 37.7 % (36-46); Lymphocytes Absolute Auto 2000 /uL (1100-4500); Lymphocytes Percent Auto 32.8 % (25-40); Mean Corpuscular HGB Conc 34.5 % (30-36); Mean Corpuscular Hemoglobin 28.7 PG (26-34); Monocytes Absolute Auto 400 /uL (0-900); Monocytes Percent Auto 6.8 % (3-14); Neutrophils Absolute Auto 3500 /uL (1500-7000); Platelet Count 257 X10^3/uL (150-400); Red Blood Cell Count 4.54 X10^6/uL (4.0-5.2); Red Cell Distribution Width 14.4 % (11.6-14.8)
[2022-02-07 14:33] LABS: TSH w/ Reflex to FT4 0.34 uIU/mL (0.47-4.68)
== END ==
PROVIDERS: PCP Family Medicine; Referring Provider Family Medicine; Visit Provider Family Medicine
DX: D64.9 Anemia, unspecified (principal); E03.9 Hypothyroidism, unspecified
CPT/HCPCS: 36415; 84439; 84443; 85025

== ENCOUNTER → 2022-08-30 12:01 | Outpatient (CLI) | payer OTHER, SELFPAY ==
--- NOTE | 2022-08-30 12:03 | DI.RAD.S_ITS ---
PROCEDURE: XR KNEE LT 3V INDICATIONS: left knee pain TECHNIQUE: 3 views of the knee were acquired. COMPARISON: None. FINDINGS: Bones: No fractures or dislocations. No suspicious bony lesions. Soft tissues: No joint effusion. No suspicious soft tissue calcifications. IMPRESSION: Normal for age, source of current knee pain symptoms is not seen. Dictated by: Juan Esquivel M.D. on 08/30/2022 at 13:17 Approved by: Juan Esquivel M.D. on 08/30/2022 at 13:17
[2022-08-30 13:30] LABS: Add Manual Diff / Slide Review NO; Basophils Absolute Auto 100 /uL (0-100); Basophils Percent Auto 0.9 % (0-2); Eosinophils Absolute Auto 100 /uL (0-450); Eosinophils Percent Auto 1.3 % (2-4); Hemoglobin 12.8 g/dL (12.0-16.0); Lymphocytes Absolute Auto 2500 /uL (1100-4500); Lymphocytes Percent Auto 32.8 % (25-40); Mean Corpuscular HGB Conc 33.6 % (30-36); Mean Corpuscular Hemoglobin 29.4 PG (26-34); Mean Corpuscular Volume 87.6 fL (80-100); Monocytes Absolute Auto 600 /uL (0-900); Monocytes Percent Auto 7.5 % (3-14); Neutrophils Absolute Auto 4400 /uL (1500-7000); Neutrophils Percent Auto 57.5 % (50-75); Platelet Count 349 X10^3/uL (150-400); Red Blood Cell Count 4.34 X10^6/uL (4.0-5.2); Red Cell Distribution Width 13.3 % (11.6-14.8); White Blood Cell Count 7.7 X10^3/uL (4.5-11.0)
[2022-08-30 14:01] LABS: Erythrocyte Sedimentation Rate 7 MM/HR (0-20)
[2022-08-30 14:07] LABS: Alanine Aminotransferase 18 IU/L (<35); Albumin 4.7 g/dL (3.5-5.0); Albumin Globulin Ratio 1.6 (1.0-2.8); Alkaline Phosphatase 64 U/L (38-126); Aspartate Aminotransferase 26 IU/L (14-36); BUN Creatinine Ratio 18.5 (6-22); Bilirubin Total 0.6 mg/dL (0.2-1.3); Blood Urea Nitrogen 10 mg/dL (7-17); C-Reactive Protein Quant < 0.5 mg/dL (<1.0); Calcium 9.5 mg/dL (8.4-10.2); Carbon Dioxide 30 mmol/L (22-32); Chloride 100 mmol/L (98-107); Estimated Glomerular Filt Rate > 60 mL/min (>60); Glucose 83 mg/dL (70-100); HEMOLYSIS < 15 (0-50); Potassium 4.1 mmol/L (3.4-5.1); Sodium 137 mmol/L (137-145); Total Protein 7.7 g/dL (6.3-8.2)
[2022-08-30 14:10] LABS: Rheumatoid Factor < 8.6 IU/mL (<12.0)
[2022-08-30 14:20] LABS: Free T3, Triiodothyronine Free 4.39 pg/mL (2.77-5.27); Free T4, Direct Thyroxine 1.25 ng/dL (0.78-2.19)
[2022-08-30 14:33] LABS: Thyroid Stimulating Hormone 2.98 uIU/mL (0.47-4.68)
[2022-09-01 06:36] LABS: Thyroid Peroxidase Antibodies 130 IU/mL (0-34)
== END ==
LOC: LAB 12:01 → RAD 12:03
PROVIDERS: PCP Family Medicine; Referring Provider Family Medicine; Visit Provider Family Medicine
DX: M25.562 Pain in left knee (principal); E03.9 Hypothyroidism, unspecified; E06.3 Autoimmune thyroiditis; M25.50 Pain in unspecified joint; R53.83 Other fatigue
CPT/HCPCS: 36415; 73562; 80053; 84439; 84443; 84481; 85025; 85651; 86140; 86376; 86430

== ENCOUNTER → 2022-09-30 12:22 | Outpatient (CLI) | payer OTHER, SELFPAY ==
--- NOTE | 2022-09-30 | DI.US.S_ITS ---
PROCEDURE: US OB <= 14 WEEKS FETUS INDICATIONS: PELVIC PAIN. HISTORY OF DERMOID. OUTSIDE/PRIOR DATING DATA: Last menstrual period (LMP): August 12, 2022. LMP-based estimated date of delivery (GUILLERMO): May 19, 2023. First dating scan (date and location): September 30, 2022. Estimated date of delivery (GUILLERMO) from first dating scan: May 20, 2023. The calculations are made using the last menstrual period GUILLERMO of May 19, 2023. TECHNIQUE: Real-time scanning was performed of the fetus and maternal pelvic organs, with image documentation. Endovaginal scanning was also performed to better visualize the fetus and maternal ovaries. COMPARISON: [facility], OB <= 14 WEEKS FETUS, 01/28/2021, 10:39. FINDINGS: Embryo: Single living intrauterine gestation is identified with estimated sonographic gestational age of approximately 6 weeks and 6 days based off crown-rump length measurement of approximately 0.9 cm. Estimated gestational age by last menstrual period is approximately 7 weeks and 0 days. heart rate measures 123 beats per minute. Small perigestational hemorrhage identified. Normal yolk sac. Heart rate: 123 beats per minute Maternal organs: Ovaries demonstrate presence of probable left corpus luteal cyst. Redemonstration of right ovarian lesion measuring 3.6 x 3.7 x 2.9 cm. This is again favored to represent an ovarian dermoid. IMPRESSION: 1. Single living intrauterine gestation with estimated sonographic gestational age of approximately 6 weeks and 6 days based off crown-rump length measurement. Dating is concordant with estimated gestational age by last menstrual period of approximately 7 weeks and 0 days. Estimated dated delivery is approximately May 19, 2023. 2. Small perigestational hemorrhage. 3. Suspected left corpus luteal cyst. 4. Redemonstration of right ovarian lesion likely representing an ovarian dermoid. This is not significantly changed in size or appearance. Recommend routine second trimester anatomy screening survey. We strive to produce accurate, complete, and clear reports of imaging services. To assist us in improving patient care, this report was composed using standard report templates and voice recognition software. Therefore, it may contain abnormal punctuation, insertions and/or omissions. Occasional wrong-word or sound-alike substitutions may occur. Though we review the report and make efforts to correct it, we do recommend that the report be read carefully in proper context to recognize any text inaccuracies. Dictated by: Joey Viveros M.D. on 09/30/2022 at 13:25 Approved by: Joey Viveros M.D. on 09/30/2022 at 13:32
== END ==
PROVIDERS: PCP Family Medicine; Referring Provider Family Medicine; Visit Provider Family Medicine
DX: R10.2 Pelvic and perineal pain (principal); N83.9 Noninflammatory disorder of ovary, fallopian tube and broad ligament, unspecified; O99.891 Other specified diseases and conditions complicating pregnancy; O46.8X1 Other antepartum hemorrhage, first trimester; Z3A.01 Less than 8 weeks gestation of pregnancy
CPT/HCPCS: 76801; 76817

== ENCOUNTER → 2022-10-29 12:58 | Outpatient (CLI) | payer OTHER, SELFPAY ==
[2022-10-29 16:36] LABS: Urine N gonorrhoeae NOT DETECTED
[2022-10-29 17:37] LABS: Urine Chlamydia NOT DETECTED
== END ==
PROVIDERS: PCP Family Medicine; Visit Provider Family Medicine
DX: Z34.81 Encounter for supervision of other normal pregnancy, first trimester (principal); Z11.3 Encounter for screening for infections with a predominantly sexual mode of transmission; Z11.8 Encounter for screening for other infectious and parasitic diseases; Z3A.11 11 weeks gestation of pregnancy
CPT/HCPCS: 87491; 87591

== ENCOUNTER → 2022-10-29 13:44 | Outpatient (CLI) | payer OTHER, SELFPAY ==
[2022-10-29 15:24] LABS: Add Manual Diff / Slide Review NO; Basophils Absolute Auto 100 /uL (0-100); Basophils Percent Auto 0.4 % (0-2); Eosinophils Absolute Auto 100 /uL (0-450); Hematocrit 38.5 % (36-46); Hemoglobin 13.3 g/dL (12.0-16.0); Lymphocytes Absolute Auto 2100 /uL (1100-4500); Lymphocytes Percent Auto 18.8 % (25-40); Mean Corpuscular HGB Conc 34.5 % (30-36); Mean Corpuscular Hemoglobin 29.9 PG (26-34); Mean Corpuscular Volume 86.7 fL (80-100); Monocytes Absolute Auto 400 /uL (0-900); Monocytes Percent Auto 3.7 % (3-14); Neutrophils Absolute Auto 8600 /uL (1500-7000); Neutrophils Percent Auto 76.1 % (50-75); Platelet Count 320 X10^3/uL (150-400); Red Blood Cell Count 4.44 X10^6/uL (4.0-5.2); Red Cell Distribution Width 13.9 % (11.6-14.8); White Blood Cell Count 11.3 X10^3/uL (4.5-11.0)
[2022-10-29 16:30] LABS: TSH w/ Reflex to FT4 1.96 uIU/mL (0.47-4.68)
[2022-10-30 10:34] LABS: Varicella IgG Antibody 822 index (Immune >165)
[2022-10-31 09:05] LABS: RPR Screen Non Reactive (Non Reactive)
[2022-10-31 15:44] LABS: Hepatitis B Surface Antigen NEGATIVE s/c (NEGATIVE); Rubella Antibody IgG 55.4 IU/mL (>15)
[2022-10-31 16:02] LABS: HIV 1 & 2 Ab/Ag 4th Gen Combo NEGATIVE (NEGATIVE); Hep C Virus Ab w/Reflex Quant NEGATIVE s/c (NEGATIVE)
[2022-11-11 12:17] LABS: Triiodothyronine T3 Reverse 22.9
== END ==
PROVIDERS: Family Medicine; PCP Family Medicine; Referring Provider Family Medicine; Visit Provider Family Medicine
DX: O99.281 Endocrine, nutritional and metabolic diseases complicating pregnancy, first trimester (principal); E06.3 Autoimmune thyroiditis; Z36.89 Encounter for other specified antenatal screening; Z13.79 Encounter for other screening for genetic and chromosomal anomalies; Z31.438 Encounter for other genetic testing of female for procreative management; Z36.0 Encounter for antenatal screening for chromosomal anomalies; Z11.3 Encounter for screening for infections with a predominantly sexual mode of transmission; Z11.8 Encounter for screening for other infectious and parasitic diseases; Z3A.11 11 weeks gestation of pregnancy
CPT/HCPCS: 36415; 80055; 84443; 84482; 86787; 86803; 86850; 86900; 86901; 87389; 87491; 87591

== ENCOUNTER → 2022-12-30 10:49 | Outpatient (CLI) | payer OTHER, SELFPAY ==
--- NOTE | 2022-12-30 10:50 | DI.US.S_ITS ---
PROCEDURE: US OB >= 14 WEEKS FETUS INDICATIONS: anatomy screening OUTSIDE/PRIOR DATING DATA: Last menstrual period (LMP): 08/12/2022. LMP-based estimated date of delivery (GUILLERMO): 05/19/2023. First dating scan (date and location): 09/30/2022. Estimated date of delivery (GUILLERMO) from first dating scan: 05/20/2023. The calculations are made using the clinical GUILLERMO of 05/19/2023. TECHNIQUE: Real-time scanning was performed of the fetus, with image documentation and biometric measurements. COMPARISON: [facility], OB >= 14 WEEKS FETUS, 10/12/2018, 15:31. [facility], OB <= 14 WEEKS FETUS, 09/30/2022, 13:33. FINDINGS: General: A single living intrauterine gestation is present. Presentation: Vertex. Placenta: Placental position is fundal , without previa. Amniotic fluid index: 12.3 cm, normal range is 5-24 cm. Single deepest vertical pocket is 4.3 cm. heart rate: 149 beats per minute. Maternal cervical canal: 4.8 cm long. Normal lower limit is 2.5 cm. biometrics: Biparietal diameter: 4.7 cm 20 weeks 3 days Head circumference: 18.2 cm 20 weeks 4 days Abdominal circumference: 16.1 cm 21 weeks 1 day Femur length: 3.2 cm 19 weeks 6 days Clinically estimated gestational age: 20 weeks 0 days Composite gestational age from present scan: 20 weeks 4 days Estimated weight and percentile: 361 g, 76th percentile Anatomic survey: Neuro: Ventricles are non-dilated at less than 10 mm. Cisterna magna is normal at 3-11 mm. Cerebellum is normal in size and morphology. Nuchal skin fold: Normal at less than 6 mm between 14-21 weeks gestational age. Face: Nose and lips, facial profile are normal. Spine: No evidence for spina bifida. Heart: 4-chambered heart is present, with normal ventricular outflow tracts. Diaphragm: Diaphragm is intact. Stomach: Left-sided stomach is present. Kidneys: No hydronephrosis. Normal is less than 5 mm in 2nd trimester, less than 7 mm in 3rd trimester. Cord: 3-vessel cord has orthotopic insertion. Bladder: Normal in size. Extremities: All 4 extremities identified. IMPRESSION: Single live intrauterine with ultrasound gestational age today of 20 weeks 4 days. Anatomy is within normal limits. We strive to produce accurate, complete, and clear reports of imaging services. To assist us in improving patient care, this report was composed using standard report templates and voice recognition software. Therefore, it may contain abnormal punctuation, insertions and/or omissions. Occasional wrong-word or sound-alike substitutions may occur. Though we review the report and make efforts to correct it, we do recommend that the report be read carefully in proper context to recognize any text inaccuracies. Dictated by: Janel Sneed M.D. on 12/30/2022 at 13:29 Approved by: Janel Sneed M.D. on 12/30/2022 at 13:33
== END ==
PROVIDERS: PCP Family Medicine; Referring Provider Family Medicine; Visit Provider Family Medicine
DX: Z36.89 Encounter for other specified antenatal screening (principal); Z3A.20 20 weeks gestation of pregnancy
CPT/HCPCS: 76811

== ENCOUNTER → 2023-01-24 16:05 | Outpatient (CLI) | payer OTHER, SELFPAY ==
[2023-01-24 18:55] LABS: Free T3, Triiodothyronine Free 3.72 pg/mL (2.77-5.27); Free T4, Direct Thyroxine 1.05 ng/dL (0.78-2.19)
[2023-01-24 19:09] LABS: Thyroid Stimulating Hormone 1.79 uIU/mL (0.47-4.68)
== END ==
PROVIDERS: PCP Family Medicine; Referring Provider Family Medicine; Visit Provider Family Medicine
DX: E03.9 Hypothyroidism, unspecified (principal)
CPT/HCPCS: 36415; 84439; 84443; 84481

== ENCOUNTER → 2023-02-19 10:42 | Outpatient (CLI) | payer OTHER, SELFPAY ==
[2023-02-19 12:38] LABS: Add Manual Diff / Slide Review NO; Basophils Absolute Auto 100 /uL (0-100); Basophils Percent Auto 0.6 % (0-2); Eosinophils Absolute Auto 100 /uL (0-450); Eosinophils Percent Auto 0.9 % (2-4); Hematocrit 36.6 % (36-46); Hemoglobin 12.4 g/dL (12.0-16.0); Lymphocytes Absolute Auto 2200 /uL (1100-4500); Lymphocytes Percent Auto 19.1 % (25-40); Mean Corpuscular Hemoglobin 29.2 PG (26-34); Monocytes Absolute Auto 500 /uL (0-900); Monocytes Percent Auto 4.8 % (3-14); Neutrophils Absolute Auto 8600 /uL (1500-7000); Neutrophils Percent Auto 74.6 % (50-75); Platelet Count 297 X10^3/uL (150-400); Red Blood Cell Count 4.26 X10^6/uL (4.0-5.2); Red Cell Distribution Width 13.9 % (11.6-14.8); White Blood Cell Count 11.5 X10^3/uL (4.5-11.0)
[2023-02-19 13:11] LABS: GTT (PREG) 1 Hour PP 50gm Dose 87 mg/dL (76-139)
== END ==
PROVIDERS: PCP Family Medicine; Referring Provider Family Medicine; Visit Provider Family Medicine
DX: Z34.82 Encounter for supervision of other normal pregnancy, second trimester (principal); Z3A.26 26 weeks gestation of pregnancy
CPT/HCPCS: 36415; 82950; 85025; 86850

== ENCOUNTER → 2023-02-19 10:44 | Outpatient (CLI) | payer OTHER, SELFPAY ==
--- NOTE | 2023-04-10 09:44 | RT ---
Zio Patch it listed as lost. Called patient to follow up. Notified patient to ask for a new referral if she wants a new zio patch.
== END ==
PROVIDERS: PCP Family Medicine; Referring Provider Family Medicine; Visit Provider Family Medicine
DX: R00.2 Palpitations (principal); Z34.82 Encounter for supervision of other normal pregnancy, second trimester; Z3A.26 26 weeks gestation of pregnancy
CPT/HCPCS: 36415; 82950; 85025; 86850; 93246